=== PATIENT | female | born 1940 | race Caucasian/White ===

== ENCOUNTER 2019-10-31 02:44 | Outpatient (CLI) | payer MEDICARE | END 2019-10-31 02:45 | disposition critical access hospital (66) | LOC: EMS 02:44 | PROVIDERS: ATTEND Surgery | DX: M25.552 Pain in left hip (principal); W10.9XXA Fall (on) (from) unspecified stairs and steps, initial encounter; Y92.003 Bedroom of unspecified non-institutional (private) residence as the place of occurrence of the external cause ==

== ENCOUNTER 2019-10-31 02:53 | Inpatient (IN) | payer MEDICARE ==
--- NOTE | 2019-10-31 02:55 | ED Physician Documentation ---
PD HPI LOWER EXT INJURY - Stated complaint Stated Complaint: GLF, LEFT HIP PAIN - History obtained from History obtained from: Patient, Family - History of Present Illness PD HPI LOW EXT INJURY LOCATION: Left, Hip Type of injury: Fall Where injury occurred: A house / apartment (visiting [facility]) Timing - onset: How many hours ago (1) Timing - details: Abrupt onset Pain level max: 10 Pain level now: 6 Improved by: Rest Worsened by: Moving, Palpating Associated symptoms: No: Weakness, Numbness Contributing factors: No: Anticoagulated, Prior ortho surgery, Prosthetic joint Similar symptoms before: Has not had sx before Recently seen: Not recently seen - Additional information Additional information: visiting [facility] with family that recently bought a home in [place]; patient was thus unfamiliar with the house's layout. Patient was walking to bathroom at approximately 2 AM when she tripped on a step/stair, fell and has severe left hip pain. Given IM fentanyl by medics (prior to IV access) with modest improvement. Denies head injury, denies LOC, denies other injury or pain except left hip Review of Systems Constitutional: reports: Reviewed and negative Eyes: reports: Reviewed and negative Ears: reports: Reviewed and negative Nose: reports: Reviewed and negative Throat: reports: Reviewed and negative Cardiac: reports: Reviewed and negative Respiratory: reports: Reviewed and negative GI: reports: Reviewed and negative : denies: Incontinent Skin: reports: Reviewed and negative Musculoskeletal: reports: Joint pain, Pain with weight bearing (unable to attempt weight bearing due to severe pain with any movement of left hip). denies: Neck pain, Back pain Neurologic: denies: Generalized weakness, Focal weakness, Numbness, Syncope, Confused, Altered mental status, Head injury, LOC PD PAST MEDICAL HISTORY - Past Medical History Past Medical History: Yes Cardiovascular: Hypertension Endocrine/Autoimmune: HyPOthyroidism - Past Surgical History Past Surgical History: No - Present Medications Home Medications: Ambulatory Orders Medication Instructions Recorded Confirmed Levothyroxine [Synthroid] 50 mcg PO QDAC 10/31/19 10/31/19 Losartan [Cozaar] 10/31/19 - Allergies Allergies/Adverse Reactions: Allergies Allergy/AdvReac Type Severity Reaction Status Date / Time No Known Drug Allergies Allergy Verified 10/31/19 03:00 - Living Situation Living Arrangement: reports: At home PD ED PE NORMAL - Vitals Vital signs reviewed: Yes - General General: Alert and oriented X 3, Well developed/nourished, Other (obvious painful distress, mild/moderate at rest but severe with any movement involving LLE) - HEENT HEENT: Atraumatic, PERRL, EOMI - Neck Neck: Supple, no meningeal sign - Cardiac Cardiac: RRR, No murmur - Respiratory Respiratory: No respiratory distress, Clear bilaterally - Abdomen Abdomen: Soft, Non tender - Derm Derm: Normal color, Warm and dry - Neuro Neuro: Alert and oriented X 3, Normal speech Eye Opening: Spontaneous Motor: Obeys Commands Verbal: Oriented GCS Score: 15 PD ED PE EXPANDED - Extremities Extremities: Tenderness (left hip TTP ), Limited ROM (unable to ROM left hip due to severe pain with any attempts at movement) Results - Vitals Vitals: Vital Signs - 24 hr 10/31/19 02:56 Temperature 36.4 C L Heart Rate 64 Respiratory 18 Rate Blood Pressure 160/74 H O2 Saturation 97 - Labs Labs: Laboratory Tests 10/31/19 10/31/19 04:00 04:00 WBC 7.7 RBC 4.17 L Hgb 12.0 Hct 38.4 MCV 92.1 MCH 28.8 MCHC 31.3 L RDW 15.1 H Plt Count 191 MPV 11.0 H Neut # (Auto) 5.0 Lymph # (Auto) 2.1 [place] # (Auto) 0.5 Eos # (Auto) 0.1 Baso # (Auto) 0.0 Absolute Nucleated RBC 0.00 Nucleated RBC % 0.0 Sodium 139 Potassium 3.8 Chloride 103 Carbon Dioxide 29 Anion Gap 7.0 BUN 16 Creatinine 1.0 Estimated GFR (MDRD) 53 L Glucose 171 H Calcium 8.9 - Rads (name of study) left hip xrays Radiology: Prelim report reviewed, See rad report PD MEDICAL DECISION MAKING - ED course Complexity details: reviewed results, re-evaluated patient, considered differential, d/w patient, d/w family ED course: D/W Dr. Graf; recommends admit to [facility] hospitalist service Departure - Departure Disposition: [facility] DC/Xfer Clinical Impression: Comminuted fracture of left hip Condition: Stable Discharge Date/Time: 10/31/19 06:01
[2019-10-31] MEDS ORDERED: MORPHINE 10 MG/ML VIAL IVP STA (03:04)
[2019-10-31] MEDS ORDERED: SODIUM CHLORIDE 0.9% 1,000 ML IV STA (03:24)
[2019-10-31] MEDS ORDERED: MORPHINE 2 MG/ML CARPUJECT IVP STA ×2 (03:38→05:35)
--- NOTE | 2019-10-31 04:04 | XRAY Report ---
Reason: fall, left hip pain Procedure Date: 10/31/2019 Accession Number: [id number] / [id number] Procedure: XR - Hip w/Pelvis 2-3V LT CPT Code: Final Report FULL RESULT: EXAM: LEFT HIP RADIOGRAPHY EXAM DATE: 10/31/2019 03:48 AM. CLINICAL HISTORY: Fall, left hip pain. COMPARISON: None. TECHNIQUE: 2 views. FINDINGS: Bones: Comminuted left proximal femoral fracture with intertrochanteric component extending from greater trochanter and displaced/angulated fracture of proximal femoral diaphysis. No additional fractures or bone lesion. Joints: No hip dislocation or subluxation. No widening of pubic symphysis or sacroiliac joints. Mild degenerative changes of visualized lower lumbar spine and hips. Soft Tissues: Normal. No soft tissue swelling. IMPRESSION: Comminuted left proximal femoral fracture with intertrochanteric component and displaced/angulated fracture of proximal femoral diaphysis. RADIA
[2019-10-31 04:07] LABS: BASOPHILS % (AUTO) 0.4 %; EOSINOPHILS # (AUTO) 0.1 10^3/uL (0.0-0.7); LYMPHOCYTES # (AUTO) 2.1 10^3/uL (1.5-3.5); LYMPHOCYTES % (AUTO) 27.3 %; MEAN CORPUSCULAR HEMOGLOBIN 28.8 pg (27.0-31.0); MEAN CORPUSCULAR HGB CONC 31.3 g/dL (32.0-36.0); MEAN CORPUSCULAR VOLUME 92.1 fL (81.0-99.0); MONOCYTES # (AUTO) 0.5 10^3/uL (0.0-1.0); MONOCYTES % (AUTO) 6.5 %; NEUTROPHILS % (AUTO) 64.5 %; PLT - PLATELET COUNT 191 10^3/uL (130-450); RED BLOOD COUNT 4.17 10^6/uL (4.20-5.40); RED CELL DISTRIBUTION WIDTH 15.1 % (12.0-15.0); WHITE BLOOD COUNT 7.7 x10^3/uL (4.8-10.8)
[2019-10-31 04:16] LABS: CALCIUM 8.9 mg/dL (8.5-10.3)
[2019-10-31] MEDS ORDERED: ACETAMINOPHEN 325 MG TABLET PO PRN (04:42)
--- NOTE | 2019-10-31 04:49 | HISTORY & PHYSICAL EXAMINATION ---
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 She is visiting family who just moved to [facility]. She woke up to use the bathroom tonight and not being familiar with the lay out of the house, she missed a step and fell. Her daughter witnessed the fall. She did not hit her head or black out. Work up in the ED included an xray which showed a comminuted left proximal femoral fracture with an intertrochanteric component and a displaced/ angulated fracture of the femoral diaphesis. Orthopedic (Dr Graf) was contacted by the ED and is agreeable to see the patient. She require morphine and fentanyl for adequate pain control. At bedside she appears comfortable and denies any pain currently. She denies chest pain, abd pain, n/v/d, fever or chills. She is otherwise health with a medical history of hypothyroidism, hypertension and slight memory loss only. History - Past Medical History Cardiovascular: reports: Hypertension Endocrine/Autoimmune: reports: HyPOthyroidism - Past Surgical History HEENT: reports: Cataracts (left eye), Other (tooth implant) - Family & Social History Family History Comment/Other: mother: Dementia Living arrangement: At home Social History Notes: She does not smoke, use alcohol or illicit drugs - POLST Patient has POLST: No POLST Status: Full Code Meds/Allgy - Home Medications Home Medications: Ambulatory Orders Medication Instructions Recorded Confirmed Levothyroxine [Synthroid] 2 tab 10/31/19 - Allergies Allergies/Adverse Reactions: Allergies Allergy/AdvReac Type Severity Reaction Status Date / Time No Known Drug Allergies Allergy Verified 10/31/19 03:00 Review of Systems - Constitutional Constitutional: denies: Fatigue, Fever, Chills - Eyes Eyes: denies: Pain, Vision loss, Dipolpia - Ears, Nose & Throat Ears, Nose & Throat: denies: Vertigo, Sore throat - Cardiovascular Cariovascular: denies: Irregular heart rate, Chest pain, Edema, Lightheadedness, Syncope, Exertional dyspnea - Respiratory Respiratory: denies: Cough, Sputum production, Wheezing, Orthopnea, SOB at rest, SOB with exertion - Gastrointestinal Gastrointestinal: denies: Abdominal pain, Abdominal distention, Constipation, Diarrhea, Nausea, Vomiting, Reflux/heartburn - Genitourinary Genitourinary: denies: Dysuria, Frequency, Urgency, Hematuria - Musculoskeletal Musculoskeletal: reports: Joint pain (left hip). denies: Back pain - Integumentary Integumentary: denies: Rash, Pruritis, Lesions, Dryness - Neurological Neurological: denies: General weakness, Focal weakness, Headache, Dizziness - Psychiatric Psychiatric: denies: Depression, Anxiety - Endocrine Endocrine: denies: Polyuria, Polydypsia - Hematologic/Lymphatic Hematologic/Lymphatic: denies: Anemia, Bruising, Petechiae Prior Level of Functionality: She is independent of activities of daily living Exam - Vital Signs Vital Signs: Vital Signs x48h Temp Pulse Resp BP Pulse Ox 10/31/19 02:56 36.4 C L 64 18 160/74 H 97 - Physical Exam General Appearance: positive: Alert, Moderate distress Eyes Bilateral: positive: Normal inspection, PERRL, EOMI ENT: positive: ENT inspection nml Neck: positive: No JVD, Trachea midline Respiratory: positive: Chest non-tender, No respiratory distress, Breath sounds nml. negative: Wheezes, Rales, Rhonchi Cardiovascular: positive: Regular rate & rhythm, No murmur Abdomen: positive: Non-tender, No organomegaly, Nml bowel sounds, No distention. negative: Guarding, Rebound Back: positive: Nml inspection Skin: positive: Color nml, No rash, Warm, Dry Extremities: positive: Nml appearance, No pedal edema Neurologic/Psychiatric: positive: Oriented x3, Mood/affect nml Conclusion/Plan - Problem List (1) Femur fracture, left Conclusion/Plan: NPO. Pain management. IV hydration with normal saline Dr Graf (orthopedics) was consulted and will see the patient Qualifiers: Encounter type: initial encounter (2) Hypothyroidism Conclusion/Plan: Resume synthroid (3) Hypertension Conclusion/Plan: Will order hydralazine prn - Lab Results Fish Bones: 10/31/19 04:00 10/31/19 04:00 Core Measures - Anticipated LOS I expect patient to be DC'd or transferred within 96 hours.: Yes - DVT/VTE - Prophylaxis VTE/DVT Device ordered at admit?: Yes
[2019-10-31 05:26] LABS: BILIRUBIN,URINE NEGATIVE (NEGATIVE); GLUCOSE, URINE (UA) NEGATIVE (NEGATIVE); KETONES,URINE (UA) NEGATIVE (NEGATIVE); LEUKOCYTE ESTERASE, URINE NEGATIVE (NEGATIVE); NITRITE,URINE NEGATIVE (NEGATIVE); OCCULT BLOOD,URINE NEGATIVE (NEGATIVE); PH,URINE 5.5 PH (5.0-7.5); PROTEIN,URINE NEGATIVE (NEGATIVE); UROBILINOGEN,URINE 0.2 (NORMAL) E.U./dL (NORMAL)
[2019-10-31] MEDS ORDERED: hydrALAZINE INJ 20 MG/ML VIAL IVP PRN (05:26)
[2019-10-31 05:27] LABS: CLARITY,URINE CLEAR (CLEAR)
[2019-10-31] MEDS: SODIUM CHLORIDE 0.9% 1,000 ML IV SCH ×3 (06:41→18:48)
[2019-10-31] MEDS: SODIUM CHLORIDE FLUSH 0.9% 10 ML SYRINGE IVP SCH ×2 (09:54→17:27)
[2019-10-31] MEDS: LEVOTHYROXINE 25 MCG TABLET PO SCH (09:54)
[2019-10-31] MEDS: HYDROmorphone 0.5 MG/0.5 ML SYRINGE IVP PRN (10:44)
[2019-10-31] MEDS: SODIUM CHLORIDE FLUSH 0.9% 10 ML SYRINGE IVP PRN (10:44)
--- NOTE | 2019-10-31 11:26 | ANESTHESIA ---
Pre-Anesthesia VS, & Labs - Diagnosis left hip fx - Procedure left hip fx repair Vital Signs: Temp Pulse Resp BP Pulse Ox 36.2 C L 71 15 136/55 H 98 10/31/19 07:28 10/31/19 07:28 10/31/19 07:28 10/31/19 07:28 10/31/19 07:28 Height 5 ft 5 in Weight (kg) 107 kg Body Mass Index 39.2 - Is Patient ?: No - Lab Results Current Lab Results: Laboratory Tests 10/31/19 04:00: Sodium 139, Potassium 3.8, Chloride 103, Carbon Dioxide 29, A nion Gap 7.0, BUN 16, Creatinine 1.0, Estimated GFR (MDRD) 53 L, Glucose 171 H, Calcium 8.9 10/31/19 04:00: WBC 7.7, RBC 4.17 L, Hgb 12.0, Hct 38.4, MCV 92.1, MCH 28.8, MCHC 31.3 L, RDW 15.1 H, Plt Count 191, MPV 11.0 H, Neut # (Auto) 5.0, Lymph # (Auto) 2.1, [place] # (Auto) 0.5, Eos # (Auto) 0.1, Baso # (Auto) 0.0, Absolute Nucleated RBC 0.00, Nucleated RBC % 0.0 Fish Bones: 10/31/19 04:00 10/31/19 04:00 Home Medications and Allergies Home Medications: Ambulatory Orders Levothyroxine [Synthroid] 50 mcg PO QDAC 10/31/19 Losartan [Cozaar] 10/31/19 Active Medications Acetaminophen (Tylenol) 650 mg PO Q6HR PRN PRN Reason: Pain 1 to 4 Hydralazine HCl (Apresoline Inj) 10 mg IVP Q4H PRN PRN Reason: PER PHYSICIAN ORDER Hydromorphone HCl (Dilaudid Inj Syringe) 0.5 mg IVP Q2H PRN PRN Reason: Pain 8 to 10 Last Admin: 10/31/19 10:44 Dose: 0.5 mg Sodium Chloride (Normal Saline 0.9%) 1,000 mls @ 100 mls/hr IV .Q10H MYRA Last Admin: 10/31/19 10:54 Dose: 100 mls/hr Levothyroxine Sodium (Synthroid) 25 mcg PO QDAC [facility] Last Admin: 10/31/19 09:54 Dose: Not Given Oxycodone HCl (Roxicodone) 5 mg PO Q4HR PRN PRN Reason: Pain 5 to 7 Sodium Chloride (Normal Saline Flush 0.9%) 10 ml IVP PRN PRN PRN Reason: NEEDED PER PROVIDER ORDERS Last Admin: 10/31/19 10:44 Dose: 10 ml Sodium Chloride (Normal Saline Flush 0.9%) 10 ml IVP 0100,0900,1700 [facility] Last Admin: 10/31/19 09:54 Dose: Not Given Levothyroxine [Synthroid] 50 mcg PO QDAC 10/31/19 Losartan [Cozaar] 10/31/19 Allergies/Adverse Reactions: Allergies Allergy/AdvReac Type Severity Reaction Status Date / Time No Known Drug Allergies Allergy Verified 10/31/19 03:00 Anes History & Medical History - Anesthetic History Anesthesia Complications: reports: No previous complications Family history of Anesthesia Complications: Denies Family history of Malignant Hyperthermia: Denies - Medical History Cardiovascular: reports: Hypertension Pulmonary: reports: None Gastrointestinal: reports: None Urinary: reports: Incontinence, Frequency Neuro: reports: Other (daughter reports "some memory loss") Musculoskeletal: reports: None Endocrine/Autoimmune: reports: HyPOthyroidism Blood Disorders: reports: None Skin: reports: None Smoking Status: Never smoker Psychosocial: reports: No issues indicated Other Past Medical History: memory loss, - Surgical History Eyes Ears Nose Throat (EENT): Cataracts (left eye), Other (tooth implant) Results - EKG Results EKG Comparison: Normal EKG Exam General: Alert, Oriented x3, Cooperative, No acute distress, Other ("some memory loss") Dental: WNL Mouth Openin Fingerbreadth Neck Mobility: Normal Mallampati classification: II Respiratory: Lungs clear, Normal breath sounds, No respiratory distress, No accessory muscle use, Decreased breath sounds Cardiovascular: Regular rate, Normal S1, Normal S2, No murmurs Abdomen: Normal bowel sounds, Soft, No tenderness, No hepatospenomegaly, No masses Extremities: No clubbing, No cyanosis, No edema, Normal pulses, No tenderness/swelling Neurological: Normal gait, Normal speech, Strength at 5/5 X4 ext, Normal tone, Sensation intact, Cranial nerves 3-12 NL, Reflexes 2+ Mental/Cognitive Status: Alert/Oriented X3, Normal for patient Cognitive Status: Within normal limits Plan Anesthesia Type: General Regional Block: Per Surgeon's request for Post Op pain control Consent for Procedure(s) Verified and Reviewed: Yes Code Status: Attempt Resuscitation ASA classification: 2-Mild systemic disease Is this case an emergency?: No
--- NOTE | 2019-10-31 12:53 | CONSULTATION NOTE ---
Referring Provider Name of Referring Provider:: Kin Aguero MD Consult Date: 10/31/19 Chief Complaint - Chief Complaint Chief Complaint: Asked to evaluate for left intertrochanteric/subtrochanteric femur fracture History of Present Illness - History Obtained From History obtained from: Kin Aguero MD, patient, daughter Michelle POA Exam Limitations: Possible patient dementia, "memory loss" per daughter - History of Present Illness HPI Comment/Other: This is an 79-year-old female who is generally active who lives alone but in a snf community. She reportedly sustained a mechanical fall on stairs in the early a.m. hours 10/31/2019. She was brought to the emergency room found to have a complex femur fracture and admitted for planned surgical intervention. Patient is seen and examined with the daughter Michelle who is the POA at the bedside. Patient denies other significant trauma just has hip and thigh pain on the left side. She says she normally ambulates with no assistive device as a baseline and takes care of herself though she does have 3 meals a day prepared by the [employer]. There are some stairs involved in her daily activities. The patient's daughter says that patient is active with shopping and activities around the house and has not been otherwise physically limited in the past. By report the patient's daughter notes that the patient has some "memory loss". History - Past Medical History Cardiovascular: reports: Hypertension Respiratory: reports: None Neuro: reports: Dementia, Other (daughter reports "some memory loss") Endocrine/Autoimmune: reports: HyPOthyroidism GI: reports: None : reports: Incontinence, Frequency Psych: reports: None Musculoskeletal: reports: None Derm: reports: None Other Past Medical History: memory loss, - Past Surgical History HEENT: reports: Cataracts (left eye), Other (tooth implant) - Family & Social History Family History Comment/Other: mother: Dementia Living arrangement: At home Social History Notes: She does not smoke, use alcohol or illicit drugs - POLST Patient has POLST: No POLST Status: Full Code Meds/Allgy - Home Medications Home Medications: Ambulatory Orders Medication Instructions Recorded Confirmed Levothyroxine [Synthroid] 50 mcg PO QDAC 10/31/19 10/31/19 Losartan [Cozaar] 10/31/19 - Allergies Allergies/Adverse Reactions: Allergies Allergy/AdvReac Type Severity Reaction Status Date / Time No Known Drug Allergies Allergy Verified 10/31/19 03:00 Exam - Vital Signs Vital Signs: Vital Signs x48h Temp Pulse Resp BP Pulse Ox 10/31/19 11:50 35.6 C L 76 15 135/57 H 96 10/31/19 07:28 36.2 C L 71 15 136/55 H 98 10/31/19 06:00 36.3 C L 65 18 130/50 L 93 - Physical Exam Comments/Other: Silvia is a well-developed obese 79-year-old female in mild distress. She is cooperative with the exam. Patient's left lower extremity is in a shortened externally rotated position. She has palpable dorsalis pedis. She is able to flex extend toes and ankle without discomfort. She reports hip and thigh pain with attempts at knee extension flexion. She has no focal tenderness about the knee leg foot or ankle. She has tenderness about the hip girdle though the skin overlying the hip girdle and thigh left side appears intact. Thigh and calf soft otherwise. Conclusion/Plan - Diagnosis Diagnosis: Left intertrochanteric/subtrochanteric comminuted displaced femur fr acture - Plan Plan: Silvia is a 79-year-old female with a left comminuted displaced intertrochanteric/subtrochanteric femur fracture with displacement. Discussed the injury with the patient and the patient's daughter Michelle. I eligio a diagram on the white board and discussed the injury as well as treatment options. We talked about the potential risks of this type of injury as well as with proposed surgery. We talked about potential surgical risks including but not limited to infection wound problems nerve or blood vessel injury bleeding blood clot blood clot embolus positioning complications anesthetic complications including but not limited to major cardiovascular neurovascular complications even . We talked about the fact that she has a complex fracture in that it would be unlikely to get the fracture fragments "perfect". We talked about the fact that there will likely continue to be some displacement to some degree. Implications of this reviewed. Potential need for additional procedures is considered. Patient and the patient's daughter had questions as were answered they verbalized understanding the above the patient's verbalized her wish to proceed with proposed procedure noted below as did the patient's daughter Michelle. We talked briefly about perioperative considerations and immediate postoperative expected plans. We will plan for surgery as no additional optimization recommended from an anesthesia or medical standpoint. Rationale for above approach and treatment recommendations reviewed. Patient will have perioperative antibiotics. Proposed procedure is left femur open reduction internal fixation, cephalo-medu llary nail placement, possible cerclage wiring. - Lab Results Fish Bones: 10/31/19 04:00 10/31/19 04:00 - Diagnostic Imaging Results Diagnostic Imaging Results Comments: Left intertrochanteric/subtrochanteric comminuted displaced femur fracture. Incomplete femur films. Further imaging planned via fluoroscopy in OR.
--- NOTE | 2019-10-31 13:22 | PHARMACY PROGRESS NOTE ---
- Best Possible Medication History Admit Date and Time: 10/31/19 0442 Medication History completed: Yes Patient Interview: Pt unable to participate Secondary Source(s): Prescription bottles, Other family member As the person ultimately responsible for medication therapy, providers are able to order a medication from an existing home medication list in [employer] via the "Reconcile Routine" prior to Confirmation of that medication by software support engineer. Such practice is discouraged except when the physician, in their clinical judgment, deems that a medical need exists for a medication without regard to previous use.
[2019-10-31] MEDS ORDERED: ROPIVACAINE 0.5% PF 20 ML AMPULE ONE (13:37)
[2019-10-31] MEDS ORDERED: LACTATED RINGERS 1,000 ML IV ONE ×3 (15:04→16:27)
--- NOTE | 2019-10-31 15:56 | PROVIDER PROGRESS NOTE ---
Assessment/Plan - Problem List (1) Comminuted fracture of left hip Assessment/Plan: She underwent left hip pinning by Dr. Glenn Lomas this afternoon. Today is POD #0. Pain meds planned as needed. Advance diet when tolerated. Start PT when possible. (2) Hypothyroidism Assessment/Plan: Continue with her p.o. thyroid replacement (3) Hypertension Assessment/Plan: Resume meds when possible. - Current Meds Current Meds: Current Medications Generic Name Dose Route Start Last Admin Trade Name Freq PRN Reason Stop Dose Admin Hydromorphone HCl 0.5 mg 10/31/19 04:42 10/31/19 10:44 Dilaudid Inj Syringe IVP 0.5 mg Q2H PRN Administration Pain 8 to 10 Sodium Chloride 1,000 mls @ 100 mls/hr 10/31/19 05:00 10/31/19 10:54 Normal Saline 0.9% IV 100 mls/hr .Q10H MYRA Administration Levothyroxine Sodium 25 mcg 10/31/19 08:00 10/31/19 09:54 Synthroid PO Not Given QDAC MYRA Sodium Chloride 10 ml 10/31/19 04:42 10/31/19 10:44 Normal Saline Flush 0.9% IVP 10 ml PRN PRN Administration NEEDED PER PROVIDER ORDERS Sodium Chloride 10 ml 10/31/19 09:00 10/31/19 09:54 Normal Saline Flush 0.9% IVP Not Given 0100,0900,1700 MYRA - Lab Result Fish Bone Diagrams: 10/31/19 04:00 10/31/19 04:00 Objective Vital Signs: Vital Signs - 24 hr 10/31/19 10/31/19 10/31/19 02:56 06:00 07:28 Temperature 36.4 C L 36.3 C L 36.2 C L Heart Rate 64 Heart Rate [ 65 71 Brachial] Respiratory 18 18 15 Rate Blood Pressure 160/74 H Blood Pressure 130/50 L 136/55 H [Right Brachial artery] O2 Saturation 97 93 98 10/31/19 11:50 Temperature 35.6 C L Heart Rate Heart Rate [ 76 Brachial] Respiratory 15 Rate Blood Pressure Blood Pressure 135/57 H [Right Brachial artery] O2 Saturation 96 Oxygen O2 Source Room air I&O (Last 24 Hrs): Intake and Output Totals x24h 10/29/19 10/30/19 10/31/19 23:59 23:59 23:59 Intake Total 1000 Output Total 125 Balance 875 - Results Results: Laboratory Results WBC 7.7 x10^3/uL (4.8-10.8) 10/31/19 04:00 RBC 4.17 10^6/uL (4.20-5.40) L 10/31/19 04:00 Hgb 12.0 g/dL (12.0-16.0) 10/31/19 04:00 Hct 38.4 % (37.0-47.0) 10/31/19 04:00 MCV 92.1 fL (81.0-99.0) 10/31/19 04:00 MCH 28.8 pg (27.0-31.0) 10/31/19 04:00 MCHC 31.3 g/dL (32.0-36.0) L 10/31/19 04:00 RDW 15.1 % (12.0-15.0) H 10/31/19 04:00 Plt Count 191 10^3/uL (130-450) 10/31/19 04:00 MPV 11.0 fL (7.9-10.8) H 10/31/19 04:00 Neut # (Auto) 5.0 10^3/uL (1.5-6.6) 10/31/19 04:00 Lymph # (Auto) 2.1 10^3/uL (1.5-3.5) 10/31/19 04:00 [place] # (Auto) 0.5 10^3/uL (0.0-1.0) 10/31/19 04:00 Eos # (Auto) 0.1 10^3/uL (0.0-0.7) 10/31/19 04:00 Baso # (Auto) 0.0 10^3/uL (0.0-0.1) 10/31/19 04:00 Absolute Nucleated RBC 0.00 x10^3/uL 10/31/19 04:00 Nucleated RBC % 0.0 /100WBC 10/31/19 04:00 Sodium 139 mmol/L (135-145) 10/31/19 04:00 Potassium 3.8 mmol/L (3.5-5.0) 10/31/19 04:00 Chloride 103 mmol/L (101-111) 10/31/19 04:00 Carbon Dioxide 29 mmol/L (21-32) 10/31/19 04:00 Anion Gap 7.0 (6-13) 10/31/19 04:00 BUN 16 mg/dL (6-20) 10/31/19 04:00 Creatinine 1.0 mg/dL (0.4-1.0) 10/31/19 04:00 Estimated GFR (MDRD) 53 (>89) L 10/31/19 04:00 Glucose 171 mg/dL (70-100) H 10/31/19 04:00 Calcium 8.9 mg/dL (8.5-10.3) 10/31/19 04:00 Urine Color YELLOW 10/31/19 05:18 Urine Clarity CLEAR (CLEAR) 10/31/19 05:18 Urine pH 5.5 PH (5.0-7.5) 10/31/19 05:18 Ur Specific [place] 1.010 (1.002-1.030) 10/31/19 05:18 Urine Protein NEGATIVE mg/dL (NEGATIVE) 10/31/19 05:18 Urine Glucose (UA) NEGATIVE mg/dL (NEGATIVE) 10/31/19 05:18 Urine Ketones NEGATIVE mg/dL (NEGATIVE) 10/31/19 05:18 Urine Occult Blood NEGATIVE (NEGATIVE) 10/31/19 05:18 Urine Nitrite NEGATIVE (NEGATIVE) 10/31/19 05:18 Urine Bilirubin NEGATIVE (NEGATIVE) 10/31/19 05:18 Urine Urobilinogen 0.2 (NORMAL) E.U./dL (NORMAL) 10/31/19 05:18 Ur Leukocyte Esterase NEGATIVE (NEGATIVE) 10/31/19 05:18 Ur Microscopic Review NOT INDICATED 10/31/19 05:18 Urine Culture Comments NOT INDICATED 10/31/19 05:18
[2019-10-31] MEDS ORDERED: PROCHLORPERAZINE 10 MG/2 ML VIAL IVP PRN (17:35)
--- NOTE | 2019-10-31 17:41 | IMMEDIATE POSTOPERATIVE NOTE ---
Immediate Postoperative Note - Procedure Note Procedure Date: 10/31/19 Pre-Op Diagnosis: Left intertrochanteric/subtrochanteric femur fracture Procedure: Left femur open reduction internal fixation cephalo-medullary nail placement with cerclage wire Post-Op Diagnosis: Same Primary Surgeon: Eric Graf MD Dietary Aide Cook: None Anesthesia Type: General ET tube, Regional block Findings: As above Complications: No complications Estimated Blood Loss (in cc): 150 Drains, Catheters, Devices: Posey catheter remains in place Specimens and Cultures: None Plan of Care: Perioperative antibiotics, perioperative DVT prophylaxis mechanical and chemical, analgesics as necessary, out of bed with physical therapy, incentive spirometer every hour when awake, partial weightbearing with foot flat weightbearing left lower extremity with assistance and assist device as necessary for transfers and ambulation. Return to medical service with close orthopedic management and [facility] when medically clear
[2019-10-31] MEDS ORDERED: ceFAZolin 2 GM in SODIUM CHLORIDE 0.9% 100ML 100 ML IV SCH (18:00)
[2019-10-31] MEDS: ceFAZolin 2 GM in SODIUM CHLORIDE 0.9% 100ML 100 ML IV SCH (22:14)
[2019-11-01] MEDS ORDERED: WATER FOR INJECTION,STERILE 10 ML ONE (02:41)
[2019-11-01 04:57] LABS: BASOPHILS % (AUTO) 0.1 %; HGB - HEMOGLOBIN 8.8 g/dL (12.0-16.0); LYMPHOCYTES # (AUTO) 1.3 10^3/uL (1.5-3.5); LYMPHOCYTES % (AUTO) 12.7 %; MEAN CORPUSCULAR HEMOGLOBIN 28.9 pg (27.0-31.0); MEAN CORPUSCULAR HGB CONC 30.3 g/dL (32.0-36.0); MEAN CORPUSCULAR VOLUME 95.1 fL (81.0-99.0); MEAN PLATELET VOLUME 11.5 fL (7.9-10.8); MONOCYTES # (AUTO) 0.6 10^3/uL (0.0-1.0); MONOCYTES % (AUTO) 6.3 %; NEUTROPHILS # (AUTO) 8.2 10^3/uL (1.5-6.6); NEUTROPHILS % (AUTO) 80.6 %; PLT - PLATELET COUNT 164 10^3/uL (130-450); RED BLOOD COUNT 3.05 10^6/uL (4.20-5.40); RED CELL DISTRIBUTION WIDTH 15.4 % (12.0-15.0); WHITE BLOOD COUNT 10.1 x10^3/uL (4.8-10.8)
[2019-11-01] MEDS: SODIUM CHLORIDE 0.9% 1,000 ML IV SCH ×3 (04:57→23:39)
[2019-11-01 05:06] LABS: CALCIUM 7.9 mg/dL (8.5-10.3); CREATININE 0.9 mg/dL (0.4-1.0)
--- NOTE | 2019-11-01 06:16 | XRAY Report ---
Reason: LEFT HIP NAILING Procedure Date: 10/31/2019 Accession Number: [id number] / [id number] Procedure: [place] - OR C-Arm Procedure CPT Code: Final Report FULL RESULT: EXAM: FLUOROSCOPIC GUIDANCE EXAM DATE: 10/31/2019 05:34 PM. CLINICAL HISTORY: LEFT HIP NAILING. COMPARISON: HIP W/PELVIS 2-3V LT 10/31/2019 3:03 AM. FINDINGS IMPRESSION: Fluoroscopic guidance provided for gamma nail placement. Total fluoroscopy time: 2 minutes 51 seconds. Number of images: 7. RADIA
[2019-11-01] MEDS: oxyCODONE 5 MG TABLET PO PRN ×3 (06:32→20:50)
[2019-11-01] MEDS: ceFAZolin 2 GM in SODIUM CHLORIDE 0.9% 100ML 100 ML IV SCH (06:35)
[2019-11-01] MEDS: LEVOTHYROXINE 25 MCG TABLET PO SCH (06:42)
--- NOTE | 2019-11-01 07:04 | PROVIDER PROGRESS NOTE ---
Subjective - Prog Note Date Prog Note Date: 11/01/19 Prog Note Time: 06:45 - Subjective Pt reports feeling: Improved (Patient says she feels "good". She says she has no pain and that she slept relatively well.) Objective - Vital Signs/Intake & Output Vital Signs: Vital Signs x48h Temp Pulse Resp BP Pulse Ox 11/01/19 04:00 36.6 C 92 18 133/45 H 94 10/31/19 23:25 36.8 C 65 18 142/52 H 96 Intake & Output: Intake & Output 10/29/19 10/30/19 10/31/19 11/01/19 23:59 23:59 23:59 23:59 Intake Total 1890 1000 Output Total 275 250 Balance 1615 750 - Lab Results Fish Bones: 11/01/19 04:45 11/01/19 04:45 Other Labs: Lab Results x24hrs 11/01/19 11/01/19 Range/Units 04:45 04:45 WBC 10.1 (4.8-10.8) x10^3/uL RBC 3.05 L (4.20-5.40) 10^6/uL Hgb 8.8 L (12.0-16.0) g/dL Hct 29.0 L (37.0-47.0) % MCV 95.1 (81.0-99.0) fL MCH 28.9 (27.0-31.0) pg MCHC 30.3 L (32.0-36.0) g/dL RDW 15.4 H (12.0-15.0) % Plt Count 164 (130-450) 10^3/uL MPV 11.5 H (7.9-10.8) fL Neut # (Auto) 8.2 H (1.5-6.6) 10^3/uL Lymph # (Auto) 1.3 L (1.5-3.5) 10^3/uL [place] # (Auto) 0.6 (0.0-1.0) 10^3/uL Eos # (Auto) 0.0 (0.0-0.7) 10^3/uL Baso # (Auto) 0.0 (0.0-0.1) 10^3/uL Absolute Nucleated RBC 0.00 x10^3/uL Nucleated RBC % 0.0 /100WBC Sodium 138 (135-145) mmol/L Potassium 4.3 (3.5-5.0) mmol/L Chloride 108 (101-111) mmol/L Carbon Dioxide 25 (21-32) mmol/L Anion Gap 5.0 L (6-13) BUN 18 (6-20) mg/dL Creatinine 0.9 (0.4-1.0) mg/dL Estimated GFR (MDRD) 60 L (>89) Glucose 164 H (70-100) mg/dL Calcium 7.9 L (8.5-10.3) mg/dL - Other Results/Comments Other Results/Comments: Patient's left lower extremity remains neurovascular unchanged distally. She is easily able to flex and extend toes ankle and initiate flexion extension knee thigh calf soft. No calf tenderness noted. Patient's left hip and thigh dressings clean dry and intact trace ecchymosis around central incision no erythema or warmth soft tissues remain soft. Assessment/Plan - Problem List (1) Comminuted fracture of left hip Impression: Silvia is an 79-year-old female postoperative day #1 status post left hip and femur open reduction internal fixation with cephalo-medullary nail placement and cerclage wire placement. She says she is comfortable and much better than she was presurgery and slept well. I recommend continued DVT prophylaxis mechanical and chemical. Foot pumps to be in place At all times while in bed. Patient to be out of bed with physical therapy and work with physical therapy occupational therapy and social work today. Patient is to be foot flat weightbearing left lower extremity with walker or oth er assistive device and assistance as necessary for transfers and ambulation. Orthopedically stable. May ultimately discharge to senior living facility when cleared physical therapy for that environment and when okay from hospitalist perspective, likely tomorrow or day after. Ultimately when discharge patient to follow-up in orthopedic clinic 10 to 14 days postop or sooner as needed. Patient and patient's daughter's questions were answered they verbalized agreement and satisfaction with above plan Qualifiers: Encounter type: subsequent encounter
[2019-11-01 08:02] LABS: ABSOLUTE RETICS # AUTO 0.048 10^6/uL (0.020-0.110); RED BLOOD COUNT 3.04 10^6/uL (4.20-5.40)
[2019-11-01 08:33] LABS: FERRITIN 119.6 ng/mL (11.0-306.8)
[2019-11-01 08:37] LABS: % IRON SATURATION 10 % (20-50); IRON 24 ug/dL (28-170); TOTAL IRON BINDING CAPACITY 239 ug/dL (250-450); TRANSFERRIN 171 mg/dL (192-382)
--- NOTE | 2019-11-01 09:13 | OPERATIVE REPORT ---
DATE OF SERVICE: 10/31/2019 Physician: Juan Graf MD SURGEON: Juan Graf MD BROADCAST CHIEF ENGINEER: None. ANESTHESIOLOGIST: Carter Jackman CRNA ANESTHESIA TYPE: Left side regional block under ultrasound guidance of the fascial iliac region of t he hip and thigh, as well as general anesthesia. FLUIDS: 1400 mL lactated Ringer's. ESTIMATED BLOOD LOSS: 150 mL URINE OUT: 200 mL COMPRESSION DEVICE: Contralateral right calf SCD. PREOPERATIVE ANTIBIOTICS: Weight-based IV Ancef. ORTHOPEDIC IMPLANTS 1. Tariq and Nephew 11.5 mm x 38 cm, 125 degree left TRIGEN Intertan nail. 2. A 2 mm cable with clamp. 3. TRIGEN Intertan subtrochanteric lag screw, 11 x 110 mm. 4. TRIGEN LP screw, 5 mm x 42.5. 5. TRIGEN LP screw, 5 x 50 mm. INTRAOPERATIVE COMPLICATIONS: None noted. PREOPERATIVE DIAGNOSIS: Left intertrochanteric/subtrochanteric displaced comminuted femur fracture. POSTOPERATIVE DIAGNOSIS: Left intertrochanteric/subtrochanteric displaced comminuted femur fracture. PROCEDURE PERFORMED: Left femur open reduction internal fixation and a cephalomedullary nail placeme nt with cerclage wire. HISTORY OF PRESENT ILLNESS AND INDICATIONS: Patient is an 79-year-old female who sustained a fall ea rly on 10/31/2019. She is brought to the emergency room and found to have a significantly displaced proximal femur fracture, is indicated for operative treatment. Discussed with the patient and patien nely's daughter, Michelle/LARISSA risks, benefits, and alternatives of operative and nonoperative treatment. We talked about potential operative risks including but not limited to infection, wound problems, ner ve or blood vessel injury, numbness, weakness, pain, stiffness, decreased range of motion, decreased function, worsening of her condition, failure to "cure" patient's problem, iatrogenic injury, bleedin g, blood loss, blood clot, blood clot embolus, positioning complications, anesthetic complications in cluding but not limited to major cardiovascular and neurovascular complications and even . We t alked about the potential for malunion and the implications of that, potential need for additional pr ocedures in the future. We also talked about related issues with sedentary behavior with hip fractur es including but not limited to pneumonia, bedsores and blood clots. They verbalized understanding o f the above and verbalized their wish to proceed with operative treatment. Informed consent is given . DESCRIPTION OF PROCEDURE: On 10/31/2019, patient is identified in her hospital room. She identified the left hip and thigh as the operative site. This is signed, as did the patient's daughter identif y the left side hip as the operative site. Patient received weight-based IV antibiotics. She is brought to the operating room. She has regiona l block under ultrasound guidance administered by anesthesia team, then general anesthesia is adminis tered. She is placed gently on a fracture table with head, neck and extremities placed in anatomical ly comfortable and safe positions to avoid peripheral nerve stretch and compression. Patient's contr alateral right lower extremity is placed in a maximal safe zone of hip flexion, internal rotation, an d abduction, in a gel-padded leg rest with an SCD boot in place. Patient's left lower extremity has a well-padded foot cunningham and is fixed to this as a reduction maneuver is performed with traction and some internal rotation. Fluoroscopic image confirms improved position of the proximal femur fractur e on the left side. At this point, patient's left thigh and left hip region are pre-scrubbed with Hi biclens solution, followed by alcohol, followed by ChloraPrep and draped under sterile conditions. At this time, surgical pause identifies the left hip and thigh as the operative site. At this point, a guide pin is used for identifying the site of the significantly displaced fracture fragment, parti cularly that of a flexed, more proximal section, at which point an incision is made through skin all the way down to IT band to the femur and a combination of [place], as well as Verbrugge type clamps are used to help reduce this fracture. The fracture position is improved and held in place with a clamp, as a more proximal incision is made such that the guide pin could be brought to the tip of the great er trochanter, approximately between the anterior and middle thirds. This is brought into the femur and then a canal entering reamer is used, followed by placement of a ball-tip guidewire, though with multiple attempts it is not possible to pass the guidewire past the fracture site. As such, the Verb rugge retractor is removed and a right angle clamp is used to place through this lateral incision to help guide the guidewire down past the fracture site all the way to the knee, is confirmed to be intr aosseous. At this point, then the reduction again is maintained with clamps. At this point, with so ft tissue protection proximally, sequential reaming up to 13 is performed and reaming across the frac ture site is held until the final reamers to avoid eccentric reaming. At this point, the appropriate length nail is selected and seated into place past the fracture site and then, prior to impacting th is, it was felt that it would be beneficial to place a cerclage wire to maintain the good reduction p rior to further impaction of the nail to avoid any displacement. As such, a wire passer for the cerc meri wire is placed directly on the femur, and a braided steel cerclage wire is placed around the bon e and then tensioned into place, which maximizes reduction. This is provisionally fixed and then con firmed on multiple images to demonstrate good reduction of the multiple fracture fragments of the fem ur, at which point this is tightened to appropriate tension and then the screw on the clamp is tighte andrez appropriately. It is not yet cut and the tentative clamps are removed, and then attention is dir ected towards proceeding the nail to the appropriate depth, followed by placement of a guide and head pin to determine trajectory of the head screw. This is followed by appropriate reaming and then wilbert cement of a femoral head screw, purposely leaving a slight bit of screw outside of the cortex to main tain fixation on the lateral cortex. At this point, the locking nut is locked and then loosened 1/8 turn and, after determination of appropriate reduction and hardware placement proximally, the cerclag e wire tagged and is cut flush. At this point, attention is directed distally to 2 locking screws, o ne in the dynamic and one in the static hole through the perfect habematolel technique through small stab incisions. Once these are seated, final images are taken. It should be noted that the more proximal of the 2 screws is tightened slightly more after the final images are taken, as is noted to be sligh tly off the cortex. At this point, wounds are copiously irrigated. Hemostasis is achieved. Final f luoroscopic images are taken as above. Deep layers are closed using 0 Vicryl suture and then 2-0 Jermaine ryl suture, followed by skin thais on all of the wounds. Skin is washed and dried. Xeroform dress ing is applied distally with 4 x 4 and Winston wrap and the proximal two incisions have silver dressings placed. Patient tolerated the procedure well. Instrument and sponge counts are correct. Patient is ultimate ly carefully transferred to her hospital bed, leg length within 5 mm, rotation within 5 degrees. Patient is transferred to the recovery room in stable condition. Patient will follow the following protocol: She will be foot-flat weightbearing, left lower extremit y, with assistance and assistive device at all times for transfers and ambulation. She will keep lui ssings in place, changed by surgeon. She will be on perioperative antibiotics and perioperative DVT prophylaxis, mechanical and chemical. She will be returned to the hospitalist service with close ort hopedic management. Patient's daughter, Michelle, contacted in patient's hospital room. The case is discussed. Questions answered. She verbalized understanding, agreement and satisfaction with the plan as outlined. TD: 11/01/2019 08:01
[2019-11-01] MEDS: SODIUM CHLORIDE FLUSH 0.9% 10 ML SYRINGE IVP SCH ×4 (10:08→23:40)
--- NOTE | 2019-11-01 10:17 | PROVIDER PROGRESS NOTE ---
Assessment/Plan - Problem List (1) Comminuted fracture of left hip Qualifiers: Encounter type: subsequent encounter Assessment/Plan: 11/01 day one from s/p left hip fracture repair continue DVT prophylaxis per surgeon order incentive spirometer PT/OT evaluation and treatment continue Pain control consulted with SW for d/c planing (2) Hypothyroidism Assessment/Plan: check TSH, and Continue with her p.o. thyroid replacement (3) Hypertension Assessment/Plan: stable, Resume Cozzar, home meds (4) anemia pt's HGB is 8.8, significantly drip from 12 at the admission, it is likely from acute blood loss from surgery. clinically pt is hemodynamic stable. anemia study reveals slight iron deficiency, replacement of iron H&H to monitor - Current Meds Current Meds: Current Medications Generic Name Dose Route Start Last Admin Trade Name Freq PRN Reason Stop Dose Admin Acetaminophen 650 mg 10/31/19 04:42 11/01/19 06:33 Tylenol PO 650 mg Q6HR PRN Administration Pain 1 to 4 Hydromorphone HCl 0.5 mg 10/31/19 04:42 10/31/19 10:44 Dilaudid Inj Syringe IVP 0.5 mg Q2H PRN Administration Pain 8 to 10 Sodium Chloride 1,000 mls @ 100 mls/hr 10/31/19 05:00 11/01/19 07:05 Normal Saline 0.9% IV 100 mls/hr .Q10H MYRA Infusion Oxycodone HCl 5 mg 10/31/19 04:42 11/01/19 06:32 Roxicodone PO 5 mg Q4HR PRN Administration Pain 5 to 7 Sodium Chloride 10 ml 10/31/19 04:42 10/31/19 10:44 Normal Saline Flush 0.9% IVP 10 ml PRN PRN Administration NEEDED PER PROVIDER ORDERS Sodium Chloride 10 ml 10/31/19 09:00 11/01/19 10:08 Normal Saline Flush 0.9% IVP Not Given 0100,0900,1700 MYRA - Lab Result Fish Bone Diagrams: 11/01/19 04:45 11/01/19 04:45 - Additional Planning My Orders: My Active Orders 11/01/19 07:49 Incentive Spirometry - RT [RC] .TID 11/01/19 09:00 Losartan [Cozaar] 50 mg PO DAILY 11/01/19 10:00 Ferrous Sulfate [Feosol] 325 mg PO DAILYWM 11/01/19 12:00 Cyanocobalamin [Vitamin B-12] 1,000 mcg IM ONCE ONE 11/01/19 14:00 H&H [HEMOGLOBIN AND HEMATOCRIT] [HEME] Timed 11/02/19 05:00 CMP [COMPREHENSIVE METABOLIC PANEL] [CHEM] DAILYLAB MAGNESIUM [CHEM] DAILYLAB TSH [THYROID STIMULATING HORMONE] [IAI] DAILYLAB 11/02/19 07:00 Levothyroxine [Synthroid] 50 mcg PO QDAC Subjective - Subjective Patient Reports: No Complaints, Other (pt denies fever, chill, chest pain or shortness of breath) Objective Vital Signs: Vital Signs - 24 hr 10/31/19 10/31/19 10/31/19 11:50 17:34 17:39 Temperature 35.6 C L 36.1 C L 36.1 C L Heart Rate 88 76 Heart Rate [ 76 Brachial] Respiratory 15 12 16 Rate Blood Pressure 150/80 H 150/75 H Blood Pressure 135/57 H [Right Brachial artery] O2 Saturation 96 100 98 10/31/19 10/31/19 10/31/19 17:44 17:49 17:55 Temperature 36.1 C L 36.1 C L 36.1 C L Heart Rate 60 62 80 Heart Rate [ Brachial] Respiratory 14 14 14 Rate Blood Pressure 128/63 135/68 H 144/98 H Blood Pressure [Right Brachial artery] O2 Saturation 98 97 96 10/31/19 10/31/19 10/31/19 18:00 18:14 18:45 Temperature 36.1 C L 36.3 C L 36.3 C L Heart Rate 64 Heart Rate [ 70 60 Brachial] Respiratory 14 18 18 Rate Blood Pressure 132/84 H Blood Pressure 130/115 H 137/42 H [Right Brachial artery] O2 Saturation 96 97 95 10/31/19 10/31/19 11/01/19 20:05 23:25 04:00 Temperature 36.6 C 36.8 C 36.6 C Heart Rate Heart Rate [ 67 65 92 Brachial] Respiratory 18 18 18 Rate Blood Pressure Blood Pressure 135/52 H 142/52 H 133/45 H [Right Brachial artery] O2 Saturation 99 96 94 11/01/19 07:39 Temperature 37.1 C Heart Rate Heart Rate [ 92 Brachial] Respiratory 20 Rate Blood Pressure Blood Pressure 137/53 H [Right Brachial artery] O2 Saturation 95 Oxygen O2 Source Room air I&O (Last 24 Hrs): Intake and Output Totals x24h 10/30/19 10/31/19 11/01/19 23:59 23:59 23:59 Intake Total 1890 1533.333 Output Total 275 250 Balance 1615 1283.333 General: Alert, No acute distress HEENT: Atraumatic Neck: Supple Lymphatic: no adenopathy Neuro: Alert, Non Focal Cardiovascular: Regular rate, Normal S1, Normal S2 Respiratory: Chest non-tender, No respiratory distress, Breath sounds nml Abdomen: Normal bowel sounds, Soft Extremities: No edema, Normal pulses - Results Results: Laboratory Results WBC 10.1 x10^3/uL (4.8-10.8) 11/01/19 04:45 RBC 3.04 10^6/uL (4.20-5.40) L 11/01/19 04:45 Hgb 8.8 g/dL (12.0-16.0) L 11/01/19 04:45 Hct 29.0 % (37.0-47.0) L 11/01/19 04:45 MCV 95.1 fL (81.0-99.0) 11/01/19 04:45 MCH 28.9 pg (27.0-31.0) 11/01/19 04:45 MCHC 30.3 g/dL (32.0-36.0) L 11/01/19 04:45 RDW 15.4 % (12.0-15.0) H 11/01/19 04:45 Plt Count 164 10^3/uL (130-450) 11/01/19 04:45 MPV 11.5 fL (7.9-10.8) H 11/01/19 04:45 Reticulocyte % (Auto) 1.57 % (0.5-2.3) 11/01/19 04:45 Neut # (Auto) 8.2 10^3/uL (1.5-6.6) H 11/01/19 04:45 Lymph # (Auto) 1.3 10^3/uL (1.5-3.5) L 11/01/19 04:45 [place] # (Auto) 0.6 10^3/uL (0.0-1.0) 11/01/19 04:45 Eos # (Auto) 0.0 10^3/uL (0.0-0.7) 11/01/19 04:45 Baso # (Auto) 0.0 10^3/uL (0.0-0.1) 11/01/19 04:45 Absolute Nucleated RBC 0.00 x10^3/uL 11/01/19 04:45 Nucleated RBC % 0.0 /100WBC 11/01/19 04:45 Absolute Retic 0.048 10^6/uL (0.020-0.110) 11/01/19 04:45 Sodium 138 mmol/L (135-145) 11/01/19 04:45 Potassium 4.3 mmol/L (3.5-5.0) 11/01/19 04:45 Chloride 108 mmol/L (101-111) 11/01/19 04:45 Carbon Dioxide 25 mmol/L (21-32) 11/01/19 04:45 Anion Gap 5.0 (6-13) L 11/01/19 04:45 BUN 18 mg/dL (6-20) 11/01/19 04:45 Creatinine 0.9 mg/dL (0.4-1.0) 11/01/19 04:45 Estimated GFR (MDRD) 60 (>89) L 11/01/19 04:45 Glucose 164 mg/dL (70-100) H 11/01/19 04:45 Calcium 7.9 mg/dL (8.5-10.3) L 11/01/19 04:45 Iron 24 ug/dL (28-170) L 11/01/19 04:45 TIBC 239 ug/dL (250-450) L 11/01/19 04:45 % Saturation 10 % (20-50) L 11/01/19 04:45 Transferrin 171 mg/dL (192-382) L 11/01/19 04:45 Ferritin 119.6 ng/mL (11.0-306.8) 11/01/19 04:45 Lactate Dehydrogenase 128 IU/L (91-225) 11/01/19 04:45 Vitamin B12 161 pg/mL (180-914) L 11/01/19 04:45 Urine Color YELLOW 10/31/19 05:18 Urine Clarity CLEAR (CLEAR) 10/31/19 05:18 Urine pH 5.5 PH (5.0-7.5) 10/31/19 05:18 Ur Specific [place] 1.010 (1.002-1.030) 10/31/19 05:18 Urine Protein NEGATIVE mg/dL (NEGATIVE) 10/31/19 05:18 Urine Glucose (UA) NEGATIVE mg/dL (NEGATIVE) 10/31/19 05:18 Urine Ketones NEGATIVE mg/dL (NEGATIVE) 10/31/19 05:18 Urine Occult Blood NEGATIVE (NEGATIVE) 10/31/19 05:18 Urine Nitrite NEGATIVE (NEGATIVE) 10/31/19 05:18 Urine Bilirubin NEGATIVE (NEGATIVE) 10/31/19 05:18 Urine Urobilinogen 0.2 (NORMAL) E.U./dL (NORMAL) 10/31/19 05:18 Ur Leukocyte Esterase NEGATIVE (NEGATIVE) 10/31/19 05:18 Ur Microscopic Review NOT INDICATED 10/31/19 05:18 Urine Culture Comments NOT INDICATED 10/31/19 05:18 Sepsis Event Note (H) - Evaluation Current Stage of Sepsis: Ruled out ABX Reporting Has patient been on IV antibiotics over the past 48 hours?: No Current Medications - Current Medications Current Medications: Active Medications Acetaminophen (Tylenol) 650 mg PO Q6HR PRN PRN Reason: Pain 1 to 4 Last Admin: 11/01/19 06:33 Dose: 650 mg Acetaminophen (Tylenol) 650 - 975 mg PO Q4HR PRN PRN Reason: PAIN Aspirin (Breann) 325 mg PO BIDWM [facility] Cyanocobalamin (Vitamin B-12) 1,000 mcg IM ONCE ONE Stop: 11/01/19 12:01 Ferrous Sulfate (Feosol) 325 mg PO DAILYWM [facility] Hydralazine HCl (Apresoline Inj) 10 mg IVP Q4H PRN PRN Reason: PER PHYSICIAN ORDER Hydromorphone HCl (Dilaudid Inj Syringe) 0.5 mg IVP Q2H PRN PRN Reason: Pain 8 to 10 Last Admin: 10/31/19 10:44 Dose: 0.5 mg Sodium Chloride (Normal Saline 0.9%) 1,000 mls @ 100 mls/hr IV .Q10H [facility] Last Infusion: 11/01/19 07:05 Dose: 100 mls/hr Acetaminophen (Ofirmev) 100 mls @ 400 mls/hr IV Q6HR PRN PRN Reason: PAIN Levothyroxine Sodium (Synthroid) 50 mcg PO QDAC [facility] Losartan Potassium (Cozaar) 50 mg PO DAILY MYRA Oxycodone HCl (Roxicodone) 5 mg PO Q4HR PRN PRN Reason: Pain 5 to 7 Last Admin: 11/01/19 06:32 Dose: 5 mg Polyethylene Glycol (Miralax) 17 gm PO DAILY [facility] Prochlorperazine Edisylate (Compazine Inj) 10 mg IVP Q6HR PRN PRN Reason: Nausea / Vomiting Sodium Chloride (Normal Saline Flush 0.9%) 10 ml IVP PRN PRN PRN Reason: NEEDED PER PROVIDER ORDERS Last Admin: 10/31/19 10:44 Dose: 10 ml Sodium Chloride (Normal Saline Flush 0.9%) 10 ml IVP 0100,0900,1700 MYRA Last Admin: 11/01/19 10:08 Dose: Not Given Levothyroxine [Synthroid] 50 mcg PO QDAC 10/31/19 Losartan [Cozaar] 50 mg PO DAILY 10/31/19
[2019-11-01] MEDS ORDERED: NEOSTIGMINE 1 MG/1 ML 10 ML MDV IVP ONE (10:42)
[2019-11-01] MEDS ORDERED: ROCURONIUM 50 MG/5 ML VIAL IVP ONE (10:42)
[2019-11-01] MEDS ORDERED: ONDANSETRON 4 MG/2 ML VIAL IVP ONE (10:42)
[2019-11-01] MEDS ORDERED: DEXAMETHASONE 4 MG/ML VIAL IVP ONE (10:42)
[2019-11-01] MEDS ORDERED: PROPOFOL 200 MG/20 ML VIAL IVP ONE (10:42)
[2019-11-01] MEDS ORDERED: GLYCOPYRROLATE 1 MG/5 ML VIAL IVP ONE (10:42)
[2019-11-01] MEDS ORDERED: KETOROLAC 15 MG/ML VIAL IVP PRN (10:45)
[2019-11-01] MEDS: FERROUS SULFATE 325 MG TABLET PO SCH (10:56)
[2019-11-01] MEDS: polyethylene glycoL 3350 17 GM PACKET PO SCH (10:56)
[2019-11-01] MEDS: ASPIRIN 325 MG TABLET PO SCH ×2 (10:56→16:47)
[2019-11-01] MEDS: LOSARTAN 50 MG TABLET PO SCH (10:57)
[2019-11-01] MEDS ORDERED: CYANOCOBALAMIN 1,000 MCG/ML VIAL IM ONE (12:00)
[2019-11-01] MEDS: ACETAMINOPHEN 325 MG TABLET PO PRN ×2 (16:47→20:50)
[2019-11-02] MEDS: ACETAMINOPHEN 1,000 MG/100 ML 100 ML IV PRN ×2 (01:41→08:24)
[2019-11-02 05:43] LABS: BASOPHILS % (AUTO) 0.3 %; EOSINOPHILS % (AUTO) 0.4 %; HGB - HEMOGLOBIN 7.1 g/dL (12.0-16.0); LYMPHOCYTES # (AUTO) 2.8 10^3/uL (1.5-3.5); LYMPHOCYTES % (AUTO) 29.8 %; MEAN CORPUSCULAR VOLUME 96.6 fL (81.0-99.0); MEAN PLATELET VOLUME 11.4 fL (7.9-10.8); MONOCYTES # (AUTO) 0.9 10^3/uL (0.0-1.0); NEUTROPHILS # (AUTO) 5.5 10^3/uL (1.5-6.6); NEUTROPHILS % (AUTO) 59.1 %; PLT - PLATELET COUNT 127 10^3/uL (130-450); RED BLOOD COUNT 2.37 10^6/uL (4.20-5.40); RED CELL DISTRIBUTION WIDTH 15.8 % (12.0-15.0); WHITE BLOOD COUNT 9.3 x10^3/uL (4.8-10.8)
--- NOTE | 2019-11-02 05:54 | Ultrasound Report ---
Reason: oliguria Procedure Date: 11/02/2019 Accession Number: [id number] / [id number] Procedure: US - Retroperitoneal CPT Code: Final Report FULL RESULT: EXAM: RENAL ULTRASOUND EXAM DATE: 11/02/2019 04:29 AM. CLINICAL HISTORY: Oliguria. COMPARISON: None. TECHNIQUE: Real-time scanning was performed with static images obtained. FINDINGS: Right Kidney: 9.8 x 4.5 x 4.8 cm. Limited evaluation due to body habitus, positioning and bowel gas. No obvious hydronephrosis, calculus or mass on provided images. Left Kidney: 9.8 x 4.8 x 4.2 cm. Limited evaluation due to body habitus, positioning and bowel gas. No obvious hydronephrosis, calculus or mass on provided images. Bladder: Posey catheter in the bladder. Bilateral jets not seen. Bladder volume is 82.5 cc. Other: Echogenic liver. IMPRESSION: 1. Limited renal ultrasound. No hydronephrosis or other renal abnormality evident allowing for limitations of exam. 2. Posey catheter in the bladder. Ureteral jets not seen. 3. Echogenic liver compatible with hepatic steatosis. RADIA
[2019-11-02 05:55] LABS: ALBUMIN 2.5 g/dL (3.2-5.5); BILIRUBIN,TOTAL 0.5 mg/dL (0.2-1.0); CALCIUM 7.4 mg/dL (8.5-10.3); CREATININE 0.8 mg/dL (0.4-1.0); TOTAL PROTEIN 4.9 g/dL (6.7-8.2)
[2019-11-02] MEDS: LEVOTHYROXINE 25 MCG TABLET PO SCH (06:43)
[2019-11-02] MEDS ORDERED: SODIUM CHLORIDE 0.9% 1,000 ML IV SCH (07:24)
--- NOTE | 2019-11-02 08:11 | PROVIDER PROGRESS NOTE ---
Subjective - Prog Note Date Prog Note Date: 11/02/19 Prog Note Time: 15:00 - Subjective Pt reports feeling: No change Subjective: She says she is doing "good" in bed. She denies current pain. She does report having had some pain with physical therapy yesterday. No cardiovascular symptoms reported. Daughter at the bedside Objective - Vital Signs/Intake & Output Vital Signs: Vital Signs x48h Temp Pulse Resp BP Pulse Ox 11/02/19 07:25 36.3 C L 76 18 125/46 L 97 11/02/19 04:00 36.7 C 85 18 113/45 L 95 Intake & Output: Intake & Output 10/30/19 10/31/19 11/01/19 11/02/19 23:59 23:59 23:59 23:59 Intake Total 1890 3970.000 619.167 Output Total 275 725 Balance 1615 3245.000 619.167 - Lab Results Fish Bones: 11/02/19 05:30 11/02/19 05:30 Other Labs: Lab Results x24hrs 11/02/19 11/02/19 11/02/19 Range/Units 05:30 05:30 05:30 WBC 9.3 (4.8-10.8) x10^3/uL RBC 2.37 L (4.20-5.40) 10^6/uL Hgb 7.1 L (12.0-16.0) g/dL Hct 22.9 L (37.0-47.0) % MCV 96.6 (81.0-99.0) fL MCH 30.0 (27.0-31.0) pg MCHC 31.0 L (32.0-36.0) g/dL RDW 15.8 H (12.0-15.0) % Plt Count 127 L (130-450) 10^3/uL MPV 11.4 H (7.9-10.8) fL Neut # (Auto) 5.5 (1.5-6.6) 10^3/uL Lymph # (Auto) 2.8 (1.5-3.5) 10^3/uL Mobile # (Auto) 0.9 (0.0-1.0) 10^3/uL Eos # (Auto) 0.0 (0.0-0.7) 10^3/uL Baso # (Auto) 0.0 (0.0-0.1) 10^3/uL Absolute Nucleated RBC 0.00 x10^3/uL Nucleated RBC % 0.0 /100WBC Sodium 138 (135-145) mmol/L Potassium 3.9 (3.5-5.0) mmol/L Chloride 108 (101-111) mmol/L Carbon Dioxide 26 (21-32) mmol/L Anion Gap 4.0 L (6-13) BUN 18 (6-20) mg/dL Creatinine 0.8 (0.4-1.0) mg/dL Estimated GFR (MDRD) 69 L (>89) Glucose 115 H (70-100) mg/dL Calcium 7.4 L (8.5-10.3) mg/dL Magnesium 2.0 (1.7-2.8) mg/dL Iron (28-170) ug/dL TIBC (250-450) ug/dL % Saturation (20-50) % Transferrin (192-382) mg/dL Ferritin (11.0-306.8) ng/mL Total Bilirubin 0.5 (0.2-1.0) mg/dL AST 43 H (10-42) IU/L ALT 18 (10-60) IU/L Alkaline Phosphatase 40 L (42-121) IU/L Lactate Dehydrogenase (91-225) IU/L Total Protein 4.9 L (6.7-8.2) g/dL Albumin 2.5 L (3.2-5.5) g/dL Globulin 2.4 (2.1-4.2) g/dL Albumin/Globulin Ratio 1.0 (1.0-2.2) Vitamin B12 (180-914) pg/mL TSH 3.26 (0.34-5.60) uIU/mL 11/01/19 11/01/19 11/01/19 Range/Units 14:02 04:45 04:45 WBC (4.8-10.8) x10^3/uL RBC (4.20-5.40) 10^6/uL Hgb 9.0 L (12.0-16.0) g/dL Hct 30.1 L (37.0-47.0) % MCV (81.0-99.0) fL MCH (27.0-31.0) pg MCHC (32.0-36.0) g/dL RDW (12.0-15.0) % Plt Count (130-450) 10^3/uL MPV (7.9-10.8) fL Neut # (Auto) (1.5-6.6) 10^3/uL Lymph # (Auto) (1.5-3.5) 10^3/uL [place] # (Auto) (0.0-1.0) 10^3/uL Eos # (Auto) (0.0-0.7) 10^3/uL Baso # (Auto) (0.0-0.1) 10^3/uL Absolute Nucleated RBC x10^3/uL Nucleated RBC % /100WBC Sodium (135-145) mmol/L Potassium (3.5-5.0) mmol/L Chloride (101-111) mmol/L Carbon Dioxide (21-32) mmol/L Anion Gap (6-13) BUN (6-20) mg/dL Creatinine (0.4-1.0) mg/dL Estimated GFR (MDRD) (>89) Glucose (70-100) mg/dL Calcium (8.5-10.3) mg/dL Magnesium (1.7-2.8) mg/dL Iron (28-170) ug/dL TIBC (250-450) ug/dL % Saturation (20-50) % Transferrin (192-382) mg/dL Ferritin 119.6 (11.0-306.8) ng/mL Total Bilirubin (0.2-1.0) mg/dL AST (10-42) IU/L ALT (10-60) IU/L Alkaline Phosphatase (42-121) IU/L Lactate Dehydrogenase 128 (91-225) IU/L Total Protein (6.7-8.2) g/dL Albumin (3.2-5.5) g/dL Globulin (2.1-4.2) g/dL Albumin/Globulin Ratio (1.0-2.2) Vitamin B12 161 L (180-914) pg/mL TSH (0.34-5.60) uIU/mL 11/01/19 Range/Units 04:45 WBC (4.8-10.8) x10^3/uL RBC (4.20-5.40) 10^6/uL Hgb (12.0-16.0) g/dL Hct (37.0-47.0) % MCV (81.0-99.0) fL MCH (27.0-31.0) pg MCHC (32.0-36.0) g/dL RDW (12.0-15.0) % Plt Count (130-450) 10^3/uL MPV (7.9-10.8) fL Neut # (Auto) (1.5-6.6) 10^3/uL Lymph # (Auto) (1.5-3.5) 10^3/uL [place] # (Auto) (0.0-1.0) 10^3/uL Eos # (Auto) (0.0-0.7) 10^3/uL Baso # (Auto) (0.0-0.1) 10^3/uL Absolute Nucleated RBC x10^3/uL Nucleated RBC % /100WBC Sodium (135-145) mmol/L Potassium (3.5-5.0) mmol/L Chloride (101-111) mmol/L Carbon Dioxide (21-32) mmol/L Anion Gap (6-13) BUN (6-20) mg/dL Creatinine (0.4-1.0) mg/dL Estimated GFR (MDRD) (>89) Glucose (70-100) mg/dL Calcium (8.5-10.3) mg/dL Magnesium (1.7-2.8) mg/dL Iron 24 L (28-170) ug/dL TIBC 239 L (250-450) ug/dL % Saturation 10 L (20-50) % Transferrin 171 L (192-382) mg/dL Ferritin (11.0-306.8) ng/mL Total Bilirubin (0.2-1.0) mg/dL AST (10-42) IU/L ALT (10-60) IU/L Alkaline Phosphatase (42-121) IU/L Lactate Dehydrogenase (91-225) IU/L Total Protein (6.7-8.2) g/dL Albumin (3.2-5.5) g/dL Globulin (2.1-4.2) g/dL Albumin/Globulin Ratio (1.0-2.2) Vitamin B12 (180-914) pg/mL TSH (0.34-5.60) uIU/mL - Other Results/Comments Other Results/Comments: Left lower extremity neurovascular unchanged. She is easily able to flex extend toes and ankle. No calf tenderness noted. Able to flex hip and knee 45+ degrees no pain with gentle logrolling. Thigh soft. Minimal ecchymosis by middle incision but no erythema appreciated dressings clean dry intact. Sepsis Event Note (H) - Evaluation Current Stage of Sepsis: Ruled out Assessment/Plan - Problem List (1) Comminuted fracture of left hip Impression: Patient orthopedically stable with regards to left femur fracture and surgery. She does have decreased hemoglobin and hematocrit. No CV sx. Vital signs are stable. Will defer to hospitalist regarding potential for transfusion. She did receive a bolus yesterday. Continue current treatment with regards to analgesics, perioperative DVT prophylaxis mechanical and chemical. Patient must keep foot pumps on while in bed at all times. She will be out of bed foot flat weightbearing left lower extremity. She is encouraged to do as much foot ankle knee and hip motion when at rest in bed or sitting as possible. The main precaution would be foot flat weightbearing left lower extremity with transfers and ambulation with assistance and assistive device. Ultimately for long-term facility discharge when appropriate. Once discharged orthopedic follow-up 10 to 14 days postop or sooner as needed. Patient and patient's daughter's questions were answered the above reviewed they verbalized understanding agreement satisfaction with above plan Qualifiers: Encounter type: subsequent encounter
[2019-11-02] MEDS: ASPIRIN 325 MG TABLET PO SCH ×2 (08:20→16:45)
[2019-11-02] MEDS: SENNA 8.6 MG TABLET PO SCH (08:21)
[2019-11-02] MEDS: FERROUS SULFATE 325 MG TABLET PO SCH (08:22)
[2019-11-02] MEDS: DOCUSATE SODIUM 250 MG CAPSULE PO SCH (08:22)
[2019-11-02] MEDS: polyethylene glycoL 3350 17 GM PACKET PO SCH (08:23)
[2019-11-02] MEDS: LOSARTAN 50 MG TABLET PO SCH (08:23)
[2019-11-02] MEDS: SODIUM CHLORIDE 0.9% 1,000 ML IV SCH ×2 (08:53→20:05)
[2019-11-02] MEDS: SODIUM CHLORIDE FLUSH 0.9% 10 ML SYRINGE IVP SCH ×3 (08:54→23:15)
[2019-11-02] MEDS: HYDROmorphone 0.5 MG/0.5 ML SYRINGE IVP PRN (08:54)
[2019-11-02] MEDS: KETOROLAC 15 MG/ML VIAL IVP PRN (10:14)
[2019-11-02] MEDS: oxyCODONE 5 MG TABLET PO PRN ×2 (10:14→19:46)
--- NOTE | 2019-11-02 11:06 | PROVIDER PROGRESS NOTE ---
Assessment/Plan - Problem List (1) Comminuted fracture of left hip Qualifiers: Encounter type: subsequent encounter Assessment/Plan: 11/02 day two from s/p left hip fracture repair. pt is alert and more oriented today, plus two, person and place but not time. pt report she felt better today. she denies chest pain, fever or chill, shortness of breath. continue followup orthopedics surgeon continue PT/OT evaluation and treatment continue Pain control consulted with SW for d/c planing 11/01 day one from s/p left hip fracture repair continue DVT prophylaxis per surgeon order incentive spirometer PT/OT evaluation and treatment continue Pain control consulted with SW for d/c planing (2) Hypothyroidism Assessment/Plan: 11/02 normal TSH, continue home levothyroxine check TSH, and Continue with her p.o. thyroid replacement (3) Hypertension Assessment/Plan: stable, Resume Cozzar, home meds (4) anemia 11/02, HGB is 7.1 today, some hemodilation after IVF of NS for her oliguria. pt is hemodynamic stable, asymptomatic for anemia. pt denies GI bleed continue H&H monitor pt continue iron pill, pt has slight iron deficiency check occult stool pt also present poor appetite. For this problem, consulted with type rolling machine operator. pt's HGB is 8.8, significantly drip from 12 at the admission, it is likely from acute blood loss from surgery. clinically pt is hemodynamic stable. anemia study reveals slight iron deficiency, replacement of iron H&H to monitor (5) oliguria 11/02 nurse report pt had oliguria at 275 ml the previous day. Yesterday pt had 725 ml, normal urine color, no darkness. Today pt already have 450 ml, so it is resolved. US of retroperitonel is unremarkable. continue gently IVF to keep pt hydration encourage pt drink and eat diet as appropriate enough D/C [place], continue closely monitor Urine out-pt - Current Meds Current Meds: Current Medications Generic Name Dose Route Start Last Admin Trade Name Freq PRN Reason Stop Dose Admin Acetaminophen 650 - 975 mg 10/31/19 17:35 11/01/19 20:50 Tylenol PO 650 mg Q4HR PRN Administration PAIN Aspirin 325 mg 11/01/19 08:00 11/02/19 08:20 Breann PO 325 mg BIDWM MYRA Administration Docusate Sodium 250 - 500 mg 11/02/19 09:00 11/02/19 08:22 Colace 250mg Capsule PO 500 mg DAILY MYRA Administration Ferrous Sulfate 325 mg 11/01/19 10:00 11/02/19 08:22 Feosol PO 325 mg DAILYWM MYRA Administration Hydromorphone HCl 0.5 mg 10/31/19 04:42 11/02/19 08:54 Dilaudid Inj Syringe IVP 0.5 mg Q2H PRN Administration Pain 8 to 10 Acetaminophen 100 mls @ 400 mls/hr 10/31/19 17:35 11/02/19 08:53 Ofirmev IV Infused Q6HR PRN Infusion PAIN Sodium Chloride 1,000 mls @ 83.3 mls/hr 11/02/19 08:40 11/02/19 08:53 Normal Saline 0.9% IV 11/03/19 08:40 83.3 mls/hr .Q12H1M MYRA Administration Ketorolac Tromethamine 15 mg 11/02/19 08:21 11/02/19 10:14 Toradol Inj (15mg) IVP 11/07/19 08:20 15 mg Q6HR PRN Administration PAIN Levothyroxine Sodium 50 mcg 11/02/19 07:00 11/02/19 06:43 Synthroid PO 50 mcg QDAC MYRA Administration Losartan Potassium 50 mg 11/01/19 09:00 11/02/19 08:23 Cozaar PO 50 mg DAILY MYRA Administration Oxycodone HCl 5 mg 10/31/19 04:42 11/02/19 10:14 Roxicodone PO 5 mg Q4HR PRN Administration Pain 5 to 7 Polyethylene Glycol 17 gm 11/01/19 09:00 11/02/19 08:23 Miralax PO 17 gm DAILY MYRA Administration Senna 8.6 - 17.2 mg 11/02/19 09:00 11/02/19 08:21 Senokot PO 17.2 mg DAILY MYRA Administration Sodium Chloride 10 ml 10/31/19 04:42 10/31/19 10:44 Normal Saline Flush 0.9% IVP 10 ml PRN PRN Administration NEEDED PER PROVIDER ORDERS Sodium Chloride 10 ml 10/31/19 09:00 11/02/19 08:54 Normal Saline Flush 0.9% IVP 10 ml 0100,0900,1700 [facility] Administration - Lab Result Fish Bone Diagrams: 11/02/19 05:30 11/02/19 05:30 - Additional Planning My Orders: My Active Orders 11/02/19 07:00 Levothyroxine [Synthroid] 50 mcg PO QDAC 11/02/19 08:21 Nutrition Consult [CONS] Routine Ketorolac Inj (15Mg) [Toradol Inj (15Mg)] 15 mg IVP Q6HR PRN 11/02/19 08:40 Sodium Chloride 0.9% [Normal Saline 0.9%] 1,000 ml IV 83.3 mls/hr 11/02/19 09:00 Docusate Sodium 250Mg Capsule [Colace 250Mg Capsule] 250 - 500 mg PO DAILY Senna [Senokot] 8.6 - 17.2 mg PO DAILY 11/02/19 12:00 H&H [HEMOGLOBIN AND HEMATOCRIT] [HEME] Timed Subjective - Subjective Patient Reports: Feeling Better Objective Vital Signs: Vital Signs - 24 hr 11/01/19 11/01/19 11/01/19 11:15 15:56 20:00 Temperature 36.9 C 37 C 36.4 C L Heart Rate [ 104 H 81 95 Brachial] Respiratory 18 18 20 Rate Blood Pressure 128/53 L 120/46 L 113/44 L [Right Brachial artery] O2 Saturation 94 96 98 11/01/19 11/02/19 11/02/19 23:42 04:00 07:25 Temperature 36.9 C 36.7 C 36.3 C L Heart Rate [ 69 85 76 Brachial] Respiratory 18 18 18 Rate Blood Pressure 103/48 L 113/45 L 125/46 L [Right Brachial artery] O2 Saturation 94 95 97 Oxygen O2 Source Room air I&O (Last 24 Hrs): Intake and Output Totals x24h 10/31/19 11/01/19 11/02/19 23:59 23:59 23:59 Intake Total 1890 3970.000 2225.000 Output Total 275 725 450 Balance 1615 3245.000 1775.000 General: Alert, No acute distress HEENT: Atraumatic, PERRLA, EOMI Neck: Supple, No thyromegaly Lymphatic: no adenopathy Neuro: Alert, Non Focal Cardiovascular: Regular rate, Normal S1, Normal S2 Respiratory: Chest non-tender, No respiratory distress, Breath sounds nml Abdomen: Normal bowel sounds, Soft Extremities: Normal pulses - Results Results: Laboratory Results WBC 9.3 x10^3/uL (4.8-10.8) 11/02/19 05:30 RBC 2.37 10^6/uL (4.20-5.40) L 11/02/19 05:30 Hgb 7.1 g/dL (12.0-16.0) L 11/02/19 05:30 Hct 22.9 % (37.0-47.0) L 11/02/19 05:30 MCV 96.6 fL (81.0-99.0) 11/02/19 05:30 MCH 30.0 pg (27.0-31.0) 11/02/19 05:30 MCHC 31.0 g/dL (32.0-36.0) L 11/02/19 05:30 RDW 15.8 % (12.0-15.0) H 11/02/19 05:30 Plt Count 127 10^3/uL (130-450) L 11/02/19 05:30 MPV 11.4 fL (7.9-10.8) H 11/02/19 05:30 Reticulocyte % (Auto) 1.57 % (0.5-2.3) 11/01/19 04:45 Neut # (Auto) 5.5 10^3/uL (1.5-6.6) 11/02/19 05:30 Lymph # (Auto) 2.8 10^3/uL (1.5-3.5) 11/02/19 05:30 [place] # (Auto) 0.9 10^3/uL (0.0-1.0) 11/02/19 05:30 Eos # (Auto) 0.0 10^3/uL (0.0-0.7) 11/02/19 05:30 Baso # (Auto) 0.0 10^3/uL (0.0-0.1) 11/02/19 05:30 Absolute Nucleated RBC 0.00 x10^3/uL 11/02/19 05:30 Nucleated RBC % 0.0 /100WBC 11/02/19 05:30 Absolute Retic 0.048 10^6/uL (0.020-0.110) 11/01/19 04:45 Sodium 138 mmol/L (135-145) 11/02/19 05:30 Potassium 3.9 mmol/L (3.5-5.0) 11/02/19 05:30 Chloride 108 mmol/L (101-111) 11/02/19 05:30 Carbon Dioxide 26 mmol/L (21-32) 11/02/19 05:30 Anion Gap 4.0 (6-13) L 11/02/19 05:30 BUN 18 mg/dL (6-20) 11/02/19 05:30 Creatinine 0.8 mg/dL (0.4-1.0) 11/02/19 05:30 Estimated GFR (MDRD) 69 (>89) L 11/02/19 05:30 Glucose 115 mg/dL (70-100) H 11/02/19 05:30 Calcium 7.4 mg/dL (8.5-10.3) L 11/02/19 05:30 Magnesium 2.0 mg/dL (1.7-2.8) 11/02/19 05:30 Iron 24 ug/dL (28-170) L 11/01/19 04:45 TIBC 239 ug/dL (250-450) L 11/01/19 04:45 % Saturation 10 % (20-50) L 11/01/19 04:45 Transferrin 171 mg/dL (192-382) L 11/01/19 04:45 Ferritin 119.6 ng/mL (11.0-306.8) 11/01/19 04:45 Total Bilirubin 0.5 mg/dL (0.2-1.0) 11/02/19 05:30 AST 43 IU/L (10-42) H 11/02/19 05:30 ALT 18 IU/L (10-60) 11/02/19 05:30 Alkaline Phosphatase 40 IU/L (42-121) L 11/02/19 05:30 Lactate Dehydrogenase 128 IU/L (91-225) 11/01/19 04:45 Total Protein 4.9 g/dL (6.7-8.2) L 11/02/19 05:30 Albumin 2.5 g/dL (3.2-5.5) L 11/02/19 05:30 Globulin 2.4 g/dL (2.1-4.2) 11/02/19 05:30 Albumin/Globulin Ratio 1.0 (1.0-2.2) 11/02/19 05:30 Vitamin B12 161 pg/mL (180-914) L 11/01/19 04:45 TSH 3.26 uIU/mL (0.34-5.60) 11/02/19 05:30 Urine Color YELLOW 10/31/19 05:18 Urine Clarity CLEAR (CLEAR) 10/31/19 05:18 Urine pH 5.5 PH (5.0-7.5) 10/31/19 05:18 Ur Specific [place] 1.010 (1.002-1.030) 10/31/19 05:18 Urine Protein NEGATIVE mg/dL (NEGATIVE) 10/31/19 05:18 Urine Glucose (UA) NEGATIVE mg/dL (NEGATIVE) 10/31/19 05:18 Urine Ketones NEGATIVE mg/dL (NEGATIVE) 10/31/19 05:18 Urine Occult Blood NEGATIVE (NEGATIVE) 10/31/19 05:18 Urine Nitrite NEGATIVE (NEGATIVE) 10/31/19 05:18 Urine Bilirubin NEGATIVE (NEGATIVE) 10/31/19 05:18 Urine Urobilinogen 0.2 (NORMAL) E.U./dL (NORMAL) 10/31/19 05:18 Ur Leukocyte Esterase NEGATIVE (NEGATIVE) 10/31/19 05:18 Ur Microscopic Review NOT INDICATED 10/31/19 05:18 Urine Culture Comments NOT INDICATED 10/31/19 05:18 Sepsis Event Note (H) - Evaluation Current Stage of Sepsis: Ruled out ABX Reporting Has patient been on IV antibiotics over the past 48 hours?: No Current Medications - Current Medications Current Medications: Active Medications Acetaminophen (Tylenol) 650 - 975 mg PO Q4HR PRN PRN Reason: PAIN Last Admin: 11/01/19 20:50 Dose: 650 mg Aspirin (Breann) 325 mg PO BIDWM [facility] Last Admin: 11/02/19 08:20 Dose: 325 mg Docusate Sodium (Colace 250mg Capsule) 250 - 500 mg PO DAILY [facility] Last Admin: 11/02/19 08:22 Dose: 500 mg Ferrous Sulfate (Feosol) 325 mg PO DAILYWM [facility] Last Admin: 11/02/19 08:22 Dose: 325 mg Hydralazine HCl (Apresoline Inj) 10 mg IVP Q4H PRN PRN Reason: PER PHYSICIAN ORDER Hydromorphone HCl (Dilaudid Inj Syringe) 0.5 mg IVP Q2H PRN PRN Reason: Pain 8 to 10 Last Admin: 11/02/19 08:54 Dose: 0.5 mg Acetaminophen (Ofirmev) 100 mls @ 400 mls/hr IV Q6HR PRN PRN Reason: PAIN Last Infusion: 11/02/19 08:53 Dose: Infused Sodium Chloride (Normal Saline 0.9%) 1,000 mls @ 83.3 mls/hr IV .Q12H1M [facility] Stop: 11/03/19 08:40 Last Admin: 11/02/19 08:53 Dose: 83.3 mls/hr Ketorolac Tromethamine (Toradol Inj (15mg)) 15 mg IVP Q6HR PRN PRN Reason: PAIN Stop: 11/07/19 08:20 Last Admin: 11/02/19 10:14 Dose: 15 mg Levothyroxine Sodium (Synthroid) 50 mcg PO QDAC [facility] Last Admin: 11/02/19 06:43 Dose: 50 mcg Losartan Potassium (Cozaar) 50 mg PO DAILY [facility] Last Admin: 11/02/19 08:23 Dose: 50 mg Oxycodone HCl (Roxicodone) 5 mg PO Q4HR PRN PRN Reason: Pain 5 to 7 Last Admin: 11/02/19 10:14 Dose: 5 mg Polyethylene Glycol (Miralax) 17 gm PO DAILY [facility] Last Admin: 11/02/19 08:23 Dose: 17 gm Prochlorperazine Edisylate (Compazine Inj) 10 mg IVP Q6HR PRN PRN Reason: Nausea / Vomiting Senna (Senokot) 8.6 - 17.2 mg PO DAILY [facility] Last Admin: 11/02/19 08:21 Dose: 17.2 mg Sodium Chloride (Normal Saline Flush 0.9%) 10 ml IVP PRN PRN PRN Reason: NEEDED PER PROVIDER ORDERS Last Admin: 10/31/19 10:44 Dose: 10 ml Sodium Chloride (Normal Saline Flush 0.9%) 10 ml IVP 0100,0900,1700 [facility] Last Admin: 11/02/19 08:54 Dose: 10 ml Levothyroxine [Synthroid] 50 mcg PO QDAC 10/31/19 Losartan [Cozaar] 50 mg PO DAILY 10/31/19
[2019-11-02 12:24] LABS: HGB - HEMOGLOBIN 7.9 g/dL (12.0-16.0)
[2019-11-02] MEDS: CHOLECALCIFEROL 1,000 UNIT TABLET PO SCH (12:39)
[2019-11-02] MEDS: ACETAMINOPHEN 325 MG TABLET PO PRN (19:45)
[2019-11-02] MEDS: CALCIUM CARBONATE CHEW 500 MG TABLET PO SCH (20:04)
[2019-11-03 06:10] LABS: BASOPHILS % (AUTO) 0.3 %; EOSINOPHILS # (AUTO) 0.2 10^3/uL (0.0-0.7); EOSINOPHILS % (AUTO) 2.1 %; HGB - HEMOGLOBIN 7.1 g/dL (12.0-16.0); LYMPHOCYTES # (AUTO) 2.4 10^3/uL (1.5-3.5); LYMPHOCYTES % (AUTO) 27.8 %; MEAN CORPUSCULAR HEMOGLOBIN 29.8 pg (27.0-31.0); MEAN CORPUSCULAR HGB CONC 31.3 g/dL (32.0-36.0); MEAN CORPUSCULAR VOLUME 95.4 fL (81.0-99.0); MEAN PLATELET VOLUME 11.6 fL (7.9-10.8); MONOCYTES # (AUTO) 0.8 10^3/uL (0.0-1.0); MONOCYTES % (AUTO) 8.7 %; NEUTROPHILS # (AUTO) 5.3 10^3/uL (1.5-6.6); NEUTROPHILS % (AUTO) 60.9 %; PLT - PLATELET COUNT 141 10^3/uL (130-450); RED BLOOD COUNT 2.38 10^6/uL (4.20-5.40); RED CELL DISTRIBUTION WIDTH 15.9 % (12.0-15.0); WHITE BLOOD COUNT 8.7 x10^3/uL (4.8-10.8)
[2019-11-03 06:17] LABS: CREATININE 0.8 mg/dL (0.4-1.0)
[2019-11-03] MEDS: LEVOTHYROXINE 25 MCG TABLET PO SCH (06:33)
[2019-11-03] MEDS: ACETAMINOPHEN 325 MG TABLET PO PRN ×3 (06:33→16:40)
[2019-11-03] MEDS: polyethylene glycoL 3350 17 GM PACKET PO SCH (08:13)
[2019-11-03] MEDS: SENNA 8.6 MG TABLET PO SCH (08:14)
[2019-11-03] MEDS: CALCIUM CARBONATE CHEW 500 MG TABLET PO SCH ×2 (08:14→20:35)
[2019-11-03] MEDS: CHOLECALCIFEROL 1,000 UNIT TABLET PO SCH (08:14)
[2019-11-03] MEDS: DOCUSATE SODIUM 250 MG CAPSULE PO SCH (08:14)
[2019-11-03] MEDS: FERROUS SULFATE 325 MG TABLET PO SCH (08:15)
[2019-11-03] MEDS: LOSARTAN 50 MG TABLET PO SCH (08:15)
[2019-11-03] MEDS: ASPIRIN 325 MG TABLET PO SCH ×2 (08:15→16:40)
[2019-11-03] MEDS: SODIUM CHLORIDE FLUSH 0.9% 10 ML SYRINGE IVP SCH ×2 (08:16→16:40)
[2019-11-03] MEDS: KETOROLAC 15 MG/ML VIAL IVP PRN (09:46)
[2019-11-03] MEDS: oxyCODONE 5 MG TABLET PO PRN (09:46)
[2019-11-03] MEDS: SODIUM CHLORIDE FLUSH 0.9% 10 ML SYRINGE IVP PRN (09:46)
--- NOTE | 2019-11-03 10:02 | PROVIDER PROGRESS NOTE ---
Assessment/Plan - Problem List (1) Intertrochanteric fracture of left femur Assessment/Plan: -Sustained a mechanical fall on stairs in the early a.m. hours 10/31/2019 -Thought to be all mechanical given the situation of new surroundings, poor lighting and no other syncope episodes -Post op day #3 after a left hip ORIF repair with Dr. Graf -Progressing with PT after given pain medications -Stood up today, but on second attempt unsuccessful -Using a sling lift by nursing for transfer from the bed to the chair -Continue PT, nursing cares, treat pain (2) Uncontrolled pain: - Status post left hip surgical repair - Hip is not bothersome unless moving and/or during therapy - Chronic low back pain for the past several years as a contributing factor - IV Toradol, PO oxycodone, Tylenol prior to moving and PRN - No recent charted BMs, continues on BM meds - Continue to monitor for improvement (3) Constipation: - Now on oxycodone, IV dilaudid as needed (last dose on 11/02) - No prior home narcotics - No BMs charted for the past several days ~ 10/30 - Worsening low back pain, may be worsened by sluggish bowels - Continue to monitor, add additional agents if needed (4) Hypothyroidism: - Normal TSH on 11/02 at 3.26 - Takes home levothyroxine 50 mcg, continued here (5) Hypertension: - B/Ps normotensive at 129/53, heart rates 70-90s - Nothing significant on telemetry, now discontinued - Takes Cozzar 50 mg at home, continued here - Continue to monitor vital signs, stop telemetry (6) Iron deficiency anemia: - Slow drift downtrend since surgical repair of hip - Recent iron studies show iron deficient - H/H 7.1/22.7, no acute s/s of acute bleeding on exam - Started on iron supplement on 11/01 - Routine labs (7) oliguria: - Continued low urine output, although no longer has a mclaughlin, (inaccurate with pure wick device) - Nursing and patient report urine is dark, non-maldourus, and concentrated appearing - Patient denies dysuria, hematuria, or retention - Urinalysis upon admission appears normal, no infection, no WBC count - Bilateral kidney US was performed on 11/02, showing no cause of low urine output - BUN/Creatinine are normal at 17/0.8, GFR 69 - Status post IVFs, mclaughlin out - Continue routine labs, encourage PO fluids (8) Physical debility: - Per PT notes, patient is recommended to be discharged to a SNF - Contributing factor of chronic obesity, now post op day #3 - Continue frequent nursing cares, await SNF placement - Current Meds Current Meds: Current Medications Generic Name Dose Route Start Last Admin Trade Name Olena PRN Reason Stop Dose Admin Acetaminophen 650 - 975 mg 10/31/19 17:35 11/03/19 09:01 Tylenol PO 650 mg Q4HR PRN Administration PAIN Aspirin 325 mg 11/01/19 08:00 11/03/19 08:15 Breann PO 325 mg BIDWM [facility] Administration Calcium Carbonate/Glycine 500 mg 11/02/19 21:00 11/03/19 08:14 Tums PO 500 mg BID [facility] Administration Cholecalciferol 2,000 unit 11/02/19 12:00 11/03/19 08:14 Vitamin D3 PO 2,000 unit DAILY [facility] Administration Docusate Sodium 250 - 500 mg 11/02/19 09:00 11/03/19 08:14 Colace 250mg Capsule PO 500 mg DAILY [facility] Administration Ferrous Sulfate 325 mg 11/01/19 10:00 11/03/19 08:15 Feosol PO 325 mg DAILYWM [facility] Administration Hydromorphone HCl 0.5 mg 10/31/19 04:42 11/02/19 08:54 Dilaudid Inj Syringe IVP 0.5 mg Q2H PRN Administration Pain 8 to 10 Acetaminophen 100 mls @ 400 mls/hr 10/31/19 17:35 11/02/19 08:53 Ofirmev IV Infused Q6HR PRN Infusion PAIN Ketorolac Tromethamine 15 mg 11/02/19 08:21 11/03/19 09:46 Toradol Inj (15mg) IVP 11/07/19 08:20 15 mg Q6HR PRN Administration PAIN Levothyroxine Sodium 50 mcg 11/02/19 07:00 11/03/19 06:33 Synthroid PO 50 mcg QDAC [facility] Administration Losartan Potassium 50 mg 11/01/19 09:00 11/03/19 08:15 Cozaar PO 50 mg DAILY [facility] Administration Oxycodone HCl 5 mg 10/31/19 04:42 11/03/19 09:46 Roxicodone PO 5 mg Q4HR PRN Administration Pain 5 to 7 Polyethylene Glycol 17 gm 11/01/19 09:00 11/03/19 08:13 Miralax PO 17 gm DAILY [facility] Administration Senna 8.6 - 17.2 mg 11/02/19 09:00 11/03/19 08:14 Senokot PO 17.2 mg DAILY [facility] Administration Sodium Chloride 10 ml 10/31/19 04:42 11/03/19 09:46 Normal Saline Flush 0.9% IVP 10 ml PRN PRN Administration NEEDED PER PROVIDER ORDERS Sodium Chloride 10 ml 10/31/19 09:00 11/03/19 08:16 Normal Saline Flush 0.9% IVP 10 ml 0100,[id number],1700 MYRA Administration - Lab Result Lab results reviewed: Yes Fish Bone Diagrams: 11/03/19 05:35 11/03/19 05:35 Subjective - Subjective Patient Reports: Back Pain, Constipation, Fatigue Nursing Reports: No Complaints, Pain (chronic, acute to left hip) Objective Vital Signs: Vital Signs - 24 hr 11/02/19 11/02/19 11/02/19 11:50 16:00 16:20 Temperature 36.8 C 36.9 C Heart Rate [ 65 67 79 Brachial] Respiratory 18 18 Rate Blood Pressure 94/60 112/49 L [Left Brachial artery] Blood Pressure 114/53 L [Right Brachial artery] O2 Saturation 95 97 11/03/19 11/03/19 11/03/19 00:34 05:25 07:26 Temperature 36.9 C 37.2 C 36.9 C Heart Rate [ 82 78 76 Brachial] Respiratory 18 18 14 Rate Blood Pressure 133/56 H 138/53 H 138/49 H [Left Brachial artery] Blood Pressure [Right Brachial artery] O2 Saturation 97 97 95 Oxygen O2 Source Room air I&O (Last 24 Hrs): Intake and Output Totals x24h 11/01/19 11/02/19 11/03/19 23:59 23:59 23:59 Intake Total 3970.000 3905.470 1220 Output Total 725 450 50 Balance 3245.000 3455.470 1170 General: Alert, No acute distress, Other (disorientated, baseline, poor short term memory) HEENT: Atraumatic, PERRLA, Mucous membr. moist/pink Neck: Supple, No JVD Lymphatic: no adenopathy Neuro: Disoriented, CN 2-12 Grossly Intact Cardiovascular: Regular rate, Normal S1, Normal S2, Other (systolic faint murmur) Respiratory: Chest non-tender, No respiratory distress, Breath sounds nml Abdomen: Normal bowel sounds, Soft, Other (increased abdominal girth, baseline) Genitourinary: No Bleeding, No Discharge Extremities: No clubbing, No cyanosis, Other (pedal edema to BLEs, left greater than right, dependent edema) Skin: No rashes, No breakdown Comments/Notes: Left hip surgical dressing is intact without significant drainage. - Results Results: Laboratory Results WBC 8.7 x10^3/uL (4.8-10.8) 11/03/19 05:35 RBC 2.38 10^6/uL (4.20-5.40) L 11/03/19 05:35 Hgb 7.1 g/dL (12.0-16.0) L 11/03/19 05:35 Hct 22.7 % (37.0-47.0) L 11/03/19 05:35 MCV 95.4 fL (81.0-99.0) 11/03/19 05:35 MCH 29.8 pg (27.0-31.0) 11/03/19 05:35 MCHC 31.3 g/dL (32.0-36.0) L 11/03/19 05:35 RDW 15.9 % (12.0-15.0) H 11/03/19 05:35 Plt Count 141 10^3/uL (130-450) 11/03/19 05:35 MPV 11.6 fL (7.9-10.8) H 11/03/19 05:35 Reticulocyte % (Auto) 1.57 % (0.5-2.3) 11/01/19 04:45 Neut # (Auto) 5.3 10^3/uL (1.5-6.6) 11/03/19 05:35 Lymph # (Auto) 2.4 10^3/uL (1.5-3.5) 11/03/19 05:35 [place] # (Auto) 0.8 10^3/uL (0.0-1.0) 11/03/19 05:35 Eos # (Auto) 0.2 10^3/uL (0.0-0.7) 11/03/19 05:35 Baso # (Auto) 0.0 10^3/uL (0.0-0.1) 11/03/19 05:35 Absolute Nucleated RBC 0.00 x10^3/uL 11/03/19 05:35 Nucleated RBC % 0.0 /100WBC 11/03/19 05:35 Absolute Retic 0.048 10^6/uL (0.020-0.110) 11/01/19 04:45 Sodium 138 mmol/L (135-145) 11/03/19 05:35 Potassium 4.1 mmol/L (3.5-5.0) 11/03/19 05:35 Chloride 108 mmol/L (101-111) 11/03/19 05:35 Carbon Dioxide 26 mmol/L (21-32) 11/03/19 05:35 Anion Gap 4.0 (6-13) L 11/03/19 05:35 BUN 17 mg/dL (6-20) 11/03/19 05:35 Creatinine 0.8 mg/dL (0.4-1.0) 11/03/19 05:35 Estimated GFR (MDRD) 69 (>89) L 11/03/19 05:35 Glucose 117 mg/dL (70-100) H 11/03/19 05:35 Calcium 8.0 mg/dL (8.5-10.3) L 11/03/19 05:35 Magnesium 2.0 mg/dL (1.7-2.8) 11/02/19 05:30 Iron 24 ug/dL (28-170) L 11/01/19 04:45 TIBC 239 ug/dL (250-450) L 11/01/19 04:45 % Saturation 10 % (20-50) L 11/01/19 04:45 Transferrin 171 mg/dL (192-382) L 11/01/19 04:45 Ferritin 119.6 ng/mL (11.0-306.8) 11/01/19 04:45 Total Bilirubin 0.5 mg/dL (0.2-1.0) 11/02/19 05:30 AST 43 IU/L (10-42) H 11/02/19 05:30 ALT 18 IU/L (10-60) 11/02/19 05:30 Alkaline Phosphatase 40 IU/L (42-121) L 11/02/19 05:30 Lactate Dehydrogenase 128 IU/L (91-225) 11/01/19 04:45 Total Protein 4.9 g/dL (6.7-8.2) L 11/02/19 05:30 Albumin 2.5 g/dL (3.2-5.5) L 11/02/19 05:30 Globulin 2.4 g/dL (2.1-4.2) 11/02/19 05:30 Albumin/Globulin Ratio 1.0 (1.0-2.2) 11/02/19 05:30 Vitamin B12 161 pg/mL (180-914) L 11/01/19 04:45 TSH 3.26 uIU/mL (0.34-5.60) 11/02/19 05:30 Urine Color YELLOW 10/31/19 05:18 Urine Clarity CLEAR (CLEAR) 10/31/19 05:18 Urine pH 5.5 PH (5.0-7.5) 10/31/19 05:18 Ur Specific [place] 1.010 (1.002-1.030) 10/31/19 05:18 Urine Protein NEGATIVE mg/dL (NEGATIVE) 10/31/19 05:18 Urine Glucose (UA) NEGATIVE mg/dL (NEGATIVE) 10/31/19 05:18 Urine Ketones NEGATIVE mg/dL (NEGATIVE) 10/31/19 05:18 Urine Occult Blood NEGATIVE (NEGATIVE) 10/31/19 05:18 Urine Nitrite NEGATIVE (NEGATIVE) 10/31/19 05:18 Urine Bilirubin NEGATIVE (NEGATIVE) 10/31/19 05:18 Urine Urobilinogen 0.2 (NORMAL) E.U./dL (NORMAL) 10/31/19 05:18 Ur Leukocyte Esterase NEGATIVE (NEGATIVE) 10/31/19 05:18 Ur Microscopic Review NOT INDICATED 10/31/19 05:18 Urine Culture Comments NOT INDICATED 10/31/19 05:18 Sepsis Event Note (H) - Evaluation Current Stage of Sepsis: Ruled out ABX Reporting Has patient been on IV antibiotics over the past 48 hours?: No
[2019-11-03] MEDS ORDERED: LACTULOSE 10 GM /15 ML UDC PO ONE (14:46)
[2019-11-03] MEDS: LIDOCAINE PATCH 5% TOP PRN (20:35)
[2019-11-04] MEDS: SODIUM CHLORIDE FLUSH 0.9% 10 ML SYRINGE IVP SCH ×2 (02:07→09:33)
[2019-11-04] MEDS: ACETAMINOPHEN 325 MG TABLET PO PRN ×3 (05:43→16:35)
[2019-11-04] MEDS: oxyCODONE 5 MG TABLET PO PRN ×3 (06:25→16:35)
[2019-11-04] MEDS: LEVOTHYROXINE 25 MCG TABLET PO SCH (06:25)
[2019-11-04] MEDS: CHOLECALCIFEROL 1,000 UNIT TABLET PO SCH (09:31)
[2019-11-04] MEDS: polyethylene glycoL 3350 17 GM PACKET PO SCH (09:31)
[2019-11-04] MEDS: ASPIRIN 325 MG TABLET PO SCH ×2 (09:32→16:35)
[2019-11-04] MEDS: FERROUS SULFATE 325 MG TABLET PO SCH (09:32)
[2019-11-04] MEDS: LOSARTAN 50 MG TABLET PO SCH (09:32)
[2019-11-04] MEDS: DOCUSATE SODIUM 250 MG CAPSULE PO SCH (09:32)
[2019-11-04] MEDS: CALCIUM CARBONATE CHEW 500 MG TABLET PO SCH ×2 (09:33→21:50)
[2019-11-04] MEDS: SENNA 8.6 MG TABLET PO SCH (09:38)
--- NOTE | 2019-11-04 16:40 | PROVIDER PROGRESS NOTE ---
Subjective - Prog Note Date Prog Note Date: 11/04/19 Prog Note Time: 16:40 - Subjective Pt reports feeling: Improved Subjective: Daunta has no complaints and is participating in PT with less uncontrolled pain. 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 Her daughter is at the bedside for much of her stay. Bed alarm is in place for impulsive behaviors. Awaiting accepting SNF for rehab. Current Medications - Current Medications Current Medications: Active Medications Acetaminophen (Tylenol) 650 - 975 mg PO Q4HR PRN PRN Reason: PAIN Last Admin: 11/04/19 16:35 Dose: 650 mg Aspirin (Breann) 325 mg PO BIDWM [facility] Last Admin: 11/04/19 16:35 Dose: 325 mg Calcium Carbonate/Glycine (Tums) 500 mg PO BID [facility] Last Admin: 11/04/19 09:33 Dose: 500 mg Cholecalciferol (Vitamin D3) 2,000 unit PO DAILY [facility] Last Admin: 11/04/19 09:31 Dose: 2,000 unit Docusate Sodium (Colace 250mg Capsule) 250 - 500 mg PO DAILY [facility] Last Admin: 11/04/19 09:32 Dose: 250 mg Ferrous Sulfate (Feosol) 325 mg PO DAILYWM [facility] Last Admin: 11/04/19 09:32 Dose: 325 mg Ketorolac Tromethamine (Toradol Inj (15mg)) 15 mg IVP Q6HR PRN PRN Reason: PAIN Stop: 11/07/19 08:20 Last Admin: 11/03/19 09:46 Dose: 15 mg Levothyroxine Sodium (Synthroid) 50 mcg PO QDAC [facility] Last Admin: 11/04/19 06:25 Dose: 50 mcg Lidocaine (Lidoderm Patch) 1 patch TOP DAILY PRN PRN Reason: PAIN Last Admin: 11/03/19 20:35 Dose: 1 patch Losartan Potassium (Cozaar) 50 mg PO DAILY [facility] Last Admin: 11/04/19 09:32 Dose: 50 mg Oxycodone HCl (Roxicodone) 5 mg PO Q4HR PRN PRN Reason: Pain 5 to 7 Last Admin: 11/04/19 16:35 Dose: 5 mg Polyethylene Glycol (Miralax) 17 gm PO DAILY [facility] Last Admin: 11/04/19 09:31 Dose: 17 gm Senna (Senokot) 8.6 - 17.2 mg PO DAILY [facility] Last Admin: 11/04/19 09:38 Dose: Not Given Levothyroxine [Synthroid] 50 mcg PO QDAC 10/31/19 Losartan [Cozaar] 50 mg PO DAILY 10/31/19 Objective - Vital Signs/Intake & Output Reviewed Vital Signs: Yes Vital Signs: Vital Signs x48h Temp Pulse Resp BP Pulse Ox 11/04/19 15:50 36.8 C 89 16 111/52 L 97 11/04/19 12:48 36.4 C L 97 15 103/56 L 96 Intake & Output: Intake & Output 11/01/19 11/02/19 11/03/19 11/04/19 23:59 23:59 23:59 23:59 Intake Total 3970.000 3905.470 1990 640 Output Total 725 045 005 0446 Balance 3245.000 3455.470 1390 -410 - Objective General Appearance: positive: No acute distress, Alert, Other (confused, baseline dementia) Eyes Bilateral: positive: PERRL, No lid inflammation Eyes: OU Conjunctivae pale ENT: positive: Pharynx nml, Dry mucous membranes Neck: positive: Thyroid nml, No JVD Respiratory: positive: Chest non-tender, No respiratory distress, Breath sounds nml, Other (diminished bilaterally) Cardiovascular: positive: Regular rate & rhythm, No gallop, Systolic murmur Peripheral Pulses: 1+ Radial (R), 1+ Radial (L) Abdomen: positive: Non-tender, Nml bowel sounds Back: positive: Nml inspection Skin: positive: Color nml, No rash, Warm, Dry Extremities: positive: Pedal edema, Joint swelling (left hip) Neurologic/Psychiatric: positive: Disoriented to place, Disoriented to time, Slurred/abnml speech, Depressed mood/affect, Other (baseline profound short term memory loss) Reflexes: Bicep (R): 2+, Bicep (L): 2+ - Lab Results Fish Bones: 11/03/19 05:35 11/03/19 05:35 ABX Reporting Has patient been on IV antibiotics over the past 48 hours?: No Assessment/Plan - Problem List (1) Intertrochanteric fracture of left femur Impression: -Sustained a mechanical fall on stairs in the early a.m. hours 10/31/2019 -Thought to be all mechanical given the situation of new surroundings, poor lighting and no other syncope episodes -Post op day #4 after a left hip ORIF repair with Dr. Graf -Progressing with PT after given pain medications -Stood up today, but on second attempt unsuccessful -Using a sling lift by nursing for transfer from the bed to the chair -Continue PT, nursing cares, treat pain (2) Uncontrolled pain: - Status post left hip surgical repair - Hip is not bothersome unless moving and/or during therapy - Chronic low back pain for the past several years as a contributing factor - PO oxycodone, Tylenol prior to moving and PRN - No recent charted BMs, continues on BM meds - Continue to monitor for improvement (3) Constipation: - Now on oxycodone, no more IV access - No prior home narcotics - No BMs charted for the past several days ~ 10/30, now with good results - Worsening low back pain, may be worsened by sluggish bowels - Improved low back pain after lactulose late last PM - Continue to monitor, add additional agents if needed (4) Hypothyroidism: - Normal TSH on 11/02 at 3.26 - Takes home levothyroxine 50 mcg, continued here (5) Hypertension: - B/Ps normotensive at 129/53, heart rates 70-90s - Nothing significant on telemetry, now discontinued - Takes Cozzar 50 mg at home, continued here - Continue to monitor vital signs (6) Iron deficiency anemia: - Slow drift downtrend since surgical repair of hip - Recent iron studies show iron deficient - H/H 7.1/22.7, no acute s/s of acute bleeding on exam - Started on iron supplement on 11/01 - Routine labs (7) oliguria: -Resolving, since moving bowels and standing up - Urinalysis upon admission appears normal, no infection, no WBC count - Bilateral kidney US was performed on 11/02, showing no cause of low urine output - BUN/Creatinine are normal at 17/0.8, GFR 69 - Status post IVFs, mclaughlin out - Continue routine labs, encourage PO fluids (8) Physical debility: - Per PT notes, patient is recommended to be discharged to a SNF - Contributing factor of chronic obesity, now post op day #4 - Continue frequent nursing cares, await SNF placement
[2019-11-05] MEDS: LEVOTHYROXINE 25 MCG TABLET PO SCH (06:28)
[2019-11-05 06:31] LABS: BASOPHILS % (AUTO) 0.4 %; EOSINOPHILS # (AUTO) 0.4 10^3/uL (0.0-0.7); EOSINOPHILS % (AUTO) 5.1 %; HGB - HEMOGLOBIN 7.5 g/dL (12.0-16.0); LYMPHOCYTES # (AUTO) 2.2 10^3/uL (1.5-3.5); MEAN CORPUSCULAR HEMOGLOBIN 28.8 pg (27.0-31.0); MEAN CORPUSCULAR VOLUME 93.1 fL (81.0-99.0); MEAN PLATELET VOLUME 10.4 fL (7.9-10.8); MONOCYTES # (AUTO) 0.6 10^3/uL (0.0-1.0); MONOCYTES % (AUTO) 7.8 %; NEUTROPHILS # (AUTO) 4.3 10^3/uL (1.5-6.6); NEUTROPHILS % (AUTO) 57.2 %; PLT - PLATELET COUNT 199 10^3/uL (130-450); WHITE BLOOD COUNT 7.5 x10^3/uL (4.8-10.8)
[2019-11-05 06:44] LABS: CALCIUM 8.5 mg/dL (8.5-10.3); CREATININE 0.7 mg/dL (0.4-1.0)
[2019-11-05] MEDS: polyethylene glycoL 3350 17 GM PACKET PO SCH (08:30)
[2019-11-05] MEDS: ASPIRIN 325 MG TABLET PO SCH ×2 (08:31→18:28)
[2019-11-05] MEDS: CHOLECALCIFEROL 1,000 UNIT TABLET PO SCH (08:31)
[2019-11-05] MEDS: SENNA 8.6 MG TABLET PO SCH (08:31)
[2019-11-05] MEDS: oxyCODONE 5 MG TABLET PO PRN ×2 (08:31→14:41)
[2019-11-05] MEDS: LOSARTAN 50 MG TABLET PO SCH (08:31)
[2019-11-05] MEDS: CALCIUM CARBONATE CHEW 500 MG TABLET PO SCH ×2 (08:31→22:29)
[2019-11-05] MEDS: ACETAMINOPHEN 325 MG TABLET PO PRN ×2 (08:32→14:41)
[2019-11-05] MEDS: FERROUS SULFATE 325 MG TABLET PO SCH (08:32)
[2019-11-05] MEDS: DOCUSATE SODIUM 250 MG CAPSULE PO SCH (08:32)
--- NOTE | 2019-11-05 12:01 | PROVIDER PROGRESS NOTE ---
Assessment/Plan - Problem List (1) Comminuted fracture of left hip Qualifiers: Encounter type: subsequent encounter Assessment/Plan: 11/05 PT/OT will continue evaluation and treatment for pt, transfer pt and progress for gait. continue followup orthopedics surgeon continue PT/OT evaluation and treatment continue Pain control SW report pt is accepted by a [place] SNF, [facility], and plan d/c pt on tomorrow. 11/02 day two from s/p left hip fracture repair. pt is alert and more oriented today, plus two, person and place but not time. pt report she felt better today. she denies chest pain, fever or chill, shortness of breath. continue followup orthopedics surgeon continue PT/OT evaluation and treatment continue Pain control consulted with SW for d/c planing 11/01 day one from s/p left hip fracture repair continue DVT prophylaxis per surgeon order incentive spirometer PT/OT evaluation and treatment continue Pain control consulted with SW for d/c planing (2) Hypothyroidism Assessment/Plan: 11/05 stable, continue home levothyroxine 11/02 normal TSH, continue home levothyroxine check TSH, and Continue with her p.o. thyroid replacement (3) Hypertension Assessment/Plan: stable, Resume Cozzar, home meds (4) anemia 11/05, pt's HGB is 7.5, hemodynamic stable. nurse report pt did not have GI bleed. Occult stool test is pending. pt was found to have iron deficiency anemia continue iron pill, and lab monitor 11/02, HGB is 7.1 today, some hemodilation after IVF of NS for her oliguria. pt is hemodynamic stable, asymptomatic for anemia. pt denies GI bleed continue H&H monitor pt continue iron pill, pt has slight iron deficiency check occult stool pt also present poor appetite. For this problem, consulted with mat roller. pt's HGB is 8.8, significantly drip from 12 at the admission, it is likely from acute blood loss from surgery. clinically pt is hemodynamic stable. anemia study reveals slight iron deficiency, replacement of iron H&H to monitor (5) oliguria 11/05 improved and better. pt has 1250ml urine yesterday, today she had 350ml now. continue hydration, and I&O monitor pt, continue lab monitor 11/02 nurse report pt had oliguria at 275 ml the previous day. Yesterday pt had 725 ml, normal urine color, no darkness. Today pt already have 450 ml, so it is resolved. US of retroperitonel is unremarkable. continue gently IVF to keep pt hydration encourage pt drink and eat diet as appropriate enough D/C P[place]y, continue closely monitor Urine out-pt - Current Meds Current Meds: Current Medications Generic Name Dose Route Start Last Admin Trade Name Freq PRN Reason Stop Dose Admin Acetaminophen 650 - 975 mg 10/31/19 17:35 11/05/19 08:32 Tylenol PO 650 mg Q4HR PRN Administration PAIN Aspirin 325 mg 11/01/19 08:00 11/05/19 08:31 Breann PO 325 mg BIDWM MYRA Administration Calcium Carbonate/Glycine 500 mg 11/02/19 21:00 11/05/19 08:31 Tums PO 500 mg BID MYRA Administration Cholecalciferol 2,000 unit 11/02/19 12:00 11/05/19 08:31 Vitamin D3 PO 2,000 unit DAILY MYRA Administration Docusate Sodium 250 - 500 mg 11/02/19 09:00 11/05/19 08:32 Colace 250mg Capsule PO 250 mg DAILY MYRA Administration Ferrous Sulfate 325 mg 11/01/19 10:00 11/05/19 08:32 Feosol PO 325 mg DAILYWM MYRA Administration Ketorolac Tromethamine 15 mg 11/02/19 08:21 11/03/19 09:46 Toradol Inj (15mg) IVP 11/07/19 08:20 15 mg Q6HR PRN Administration PAIN Levothyroxine Sodium 50 mcg 11/02/19 07:00 11/05/19 06:28 Synthroid PO 50 mcg QDAC MYRA Administration Lidocaine 1 patch 11/02/19 14:35 11/03/19 20:35 Lidoderm Patch TOP 1 patch DAILY PRN Administration PAIN Losartan Potassium 50 mg 11/01/19 09:00 11/05/19 08:31 Cozaar PO 50 mg DAILY MYRA Administration Oxycodone HCl 5 mg 10/31/19 04:42 11/05/19 08:31 Roxicodone PO 5 mg Q4HR PRN Administration Pain 5 to 7 Polyethylene Glycol 17 gm 11/01/19 09:00 11/05/19 08:30 Miralax PO 17 gm DAILY MYRA Administration Senna 8.6 - 17.2 mg 11/02/19 09:00 11/05/19 08:31 Senokot PO 8.6 mg DAILY MYRA Administration - Lab Result Fish Bone Diagrams: 11/05/19 06:23 11/05/19 06:23 - Additional Planning My Orders: My Active Orders 11/07/19 05:00 BMP - BASIC METABOLIC PANEL [CHEM] DAILYLAB CBC - COMP BLD CT W/AUTO DIFF [HEME] DAILYLAB 11/08/19 05:00 BMP - BASIC METABOLIC PANEL [CHEM] DAILYLAB CBC - COMP BLD CT W/AUTO DIFF [HEME] DAILYLAB 11/06/19 05:00 BMP - BASIC METABOLIC PANEL [CHEM] DAILYLAB CBC - COMP BLD CT W/AUTO DIFF [HEME] DAILYLAB Subjective - Subjective Patient Reports: Feeling Better Objective Vital Signs: Vital Signs - 24 hr 11/04/19 11/04/19 11/04/19 12:48 15:50 19:35 Temperature 36.4 C L 36.8 C 36.5 C Heart Rate [ 97 89 75 Brachial] Respiratory 15 16 16 Rate Blood Pressure 103/56 L 111/52 L 151/54 H [Right Brachial artery] O2 Saturation 96 97 99 11/04/19 11/05/19 23:56 07:41 Temperature 36.8 C 36.9 C Heart Rate [ 74 73 Brachial] Respiratory 18 16 Rate Blood Pressure 143/68 H 118/64 [Right Brachial artery] O2 Saturation 99 96 Oxygen O2 Source Room air I&O (Last 24 Hrs): Intake and Output Totals x24h 11/03/19 11/04/19 11/05/19 23:59 23:59 23:59 Intake Total 1990 1000 120 Output Total 600 1250 350 Balance 1390 -250 -230 General: Alert, No acute distress HEENT: Atraumatic, PERRLA, EOMI Neck: Supple Lymphatic: no adenopathy Neuro: Alert, Non Focal Cardiovascular: Regular rate, Normal S1, Normal S2 Respiratory: Chest non-tender, No respiratory distress, Breath sounds nml Abdomen: Normal bowel sounds, Soft Extremities: Normal pulses - Results Results: Laboratory Results WBC 7.5 x10^3/uL (4.8-10.8) 11/05/19 06:23 RBC 2.60 10^6/uL (4.20-5.40) L 11/05/19 06:23 Hgb 7.5 g/dL (12.0-16.0) L 11/05/19 06:23 Hct 24.2 % (37.0-47.0) L 11/05/19 06:23 MCV 93.1 fL (81.0-99.0) 11/05/19 06:23 MCH 28.8 pg (27.0-31.0) 11/05/19 06:23 MCHC 31.0 g/dL (32.0-36.0) L 11/05/19 06:23 RDW 16.0 % (12.0-15.0) H 11/05/19 06:23 Plt Count 199 10^3/uL (130-450) 11/05/19 06:23 MPV 10.4 fL (7.9-10.8) 11/05/19 06:23 Reticulocyte % (Auto) 1.57 % (0.5-2.3) 11/01/19 04:45 Neut # (Auto) 4.3 10^3/uL (1.5-6.6) 11/05/19 06:23 Lymph # (Auto) 2.2 10^3/uL (1.5-3.5) 11/05/19 06:23 [place] # (Auto) 0.6 10^3/uL (0.0-1.0) 11/05/19 06:23 Eos # (Auto) 0.4 10^3/uL (0.0-0.7) 11/05/19 06:23 Baso # (Auto) 0.0 10^3/uL (0.0-0.1) 11/05/19 06:23 Absolute Nucleated RBC 0.00 x10^3/uL 11/05/19 06:23 Nucleated RBC % 0.0 /100WBC 11/05/19 06:23 Absolute Retic 0.048 10^6/uL (0.020-0.110) 11/01/19 04:45 Sodium 139 mmol/L (135-145) 11/05/19 06:23 Potassium 4.2 mmol/L (3.5-5.0) 11/05/19 06:23 Chloride 107 mmol/L (101-111) 11/05/19 06:23 Carbon Dioxide 28 mmol/L (21-32) 11/05/19 06:23 Anion Gap 4.0 (6-13) L 11/05/19 06:23 BUN 13 mg/dL (6-20) 11/05/19 06:23 Creatinine 0.7 mg/dL (0.4-1.0) 11/05/19 06:23 Estimated GFR (MDRD) 81 (>89) L 11/05/19 06:23 Glucose 110 mg/dL (70-100) H 11/05/19 06:23 Calcium 8.5 mg/dL (8.5-10.3) 11/05/19 06:23 Magnesium 2.0 mg/dL (1.7-2.8) 11/02/19 05:30 Iron 24 ug/dL (28-170) L 11/01/19 04:45 TIBC 239 ug/dL (250-450) L 11/01/19 04:45 % Saturation 10 % (20-50) L 11/01/19 04:45 Transferrin 171 mg/dL (192-382) L 11/01/19 04:45 Ferritin 119.6 ng/mL (11.0-306.8) 11/01/19 04:45 Total Bilirubin 0.5 mg/dL (0.2-1.0) 11/02/19 05:30 AST 43 IU/L (10-42) H 11/02/19 05:30 ALT 18 IU/L (10-60) 11/02/19 05:30 Alkaline Phosphatase 40 IU/L (42-121) L 11/02/19 05:30 Lactate Dehydrogenase 128 IU/L (91-225) 11/01/19 04:45 Total Protein 4.9 g/dL (6.7-8.2) L 11/02/19 05:30 Albumin 2.5 g/dL (3.2-5.5) L 11/02/19 05:30 Globulin 2.4 g/dL (2.1-4.2) 11/02/19 05:30 Albumin/Globulin Ratio 1.0 (1.0-2.2) 11/02/19 05:30 Vitamin B12 161 pg/mL (180-914) L 11/01/19 04:45 TSH 3.26 uIU/mL (0.34-5.60) 11/02/19 05:30 Urine Color YELLOW 10/31/19 05:18 Urine Clarity CLEAR (CLEAR) 10/31/19 05:18 Urine pH 5.5 PH (5.0-7.5) 10/31/19 05:18 Ur Specific [place] 1.010 (1.002-1.030) 10/31/19 05:18 Urine Protein NEGATIVE mg/dL (NEGATIVE) 10/31/19 05:18 Urine Glucose (UA) NEGATIVE mg/dL (NEGATIVE) 10/31/19 05:18 Urine Ketones NEGATIVE mg/dL (NEGATIVE) 10/31/19 05:18 Urine Occult Blood NEGATIVE (NEGATIVE) 10/31/19 05:18 Urine Nitrite NEGATIVE (NEGATIVE) 10/31/19 05:18 Urine Bilirubin NEGATIVE (NEGATIVE) 10/31/19 05:18 Urine Urobilinogen 0.2 (NORMAL) E.U./dL (NORMAL) 10/31/19 05:18 Ur Leukocyte Esterase NEGATIVE (NEGATIVE) 10/31/19 05:18 Ur Microscopic Review NOT INDICATED 10/31/19 05:18 Urine Culture Comments NOT INDICATED 10/31/19 05:18 Sepsis Event Note (H) - Evaluation Current Stage of Sepsis: Ruled out ABX Reporting Has patient been on IV antibiotics over the past 48 hours?: No Current Medications - Current Medications Current Medications: Active Medications Acetaminophen (Tylenol) 650 - 975 mg PO Q4HR PRN PRN Reason: PAIN Last Admin: 11/05/19 08:32 Dose: 650 mg Aspirin (Breann) 325 mg PO BIDWM PENDING SALE TO [facility] Last Admin: 11/05/19 08:31 Dose: 325 mg Calcium Carbonate/Glycine (Tums) 500 mg PO BID PENDING SALE TO [facility] Last Admin: 11/05/19 08:31 Dose: 500 mg Cholecalciferol (Vitamin D3) 2,000 unit PO DAILY PENDING SALE TO [facility] Last Admin: 11/05/19 08:31 Dose: 2,000 unit Docusate Sodium (Colace 250mg Capsule) 250 - 500 mg PO DAILY PENDING SALE TO [facility] Last Admin: 11/05/19 08:32 Dose: 250 mg Ferrous Sulfate (Feosol) 325 mg PO DAILYWM PENDING SALE TO [facility] Last Admin: 11/05/19 08:32 Dose: 325 mg Ketorolac Tromethamine (Toradol Inj (15mg)) 15 mg IVP Q6HR PRN PRN Reason: PAIN Stop: 11/07/19 08:20 Last Admin: 11/03/19 09:46 Dose: 15 mg Levothyroxine Sodium (Synthroid) 50 mcg PO QDAC PENDING SALE TO [facility] Last Admin: 11/05/19 06:28 Dose: 50 mcg Lidocaine (Lidoderm Patch) 1 patch TOP DAILY PRN PRN Reason: PAIN Last Admin: 11/03/19 20:35 Dose: 1 patch Losartan Potassium (Cozaar) 50 mg PO DAILY PENDING SALE TO [facility] Last Admin: 11/05/19 08:31 Dose: 50 mg Oxycodone HCl (Roxicodone) 5 mg PO Q4HR PRN PRN Reason: Pain 5 to 7 Last Admin: 11/05/19 08:31 Dose: 5 mg Polyethylene Glycol (Miralax) 17 gm PO DAILY PENDING SALE TO [facility] Last Admin: 11/05/19 08:30 Dose: 17 gm Senna (Senokot) 8.6 - 17.2 mg PO DAILY PENDING SALE TO [facility] Last Admin: 11/05/19 08:31 Dose: 8.6 mg Levothyroxine [Synthroid] 50 mcg PO QDAC 10/31/19 Losartan [Cozaar] 50 mg PO DAILY 10/31/19
[2019-11-05] MEDS: LIDOCAINE PATCH 5% TOP PRN (18:39)
[2019-11-06] MEDS: LEVOTHYROXINE 25 MCG TABLET PO SCH (06:13)
--- NOTE | 2019-11-06 07:35 | DISCHARGE SUMMARY ---
"Discharge Summary Admit Date: 10/31/19 Discharge Date: 11/06/19 Discharging Provider: Marin Brambila Primary Care Provider: new provider at [place] Condition at Discharge: Stable Discharge Disposition: SNF DC/Xfer Discharge Facility Name: [facility], [place] - DIAGNOSES Admission Diagnoses: (1) Femur fracture, left (2) Hypothyroidism (3) Hypertension Discharge Diagnoses with Status of Each Condition: (1) Comminuted fracture of left hip stable, s/p left hip repair. D/C to SNF for continuing training. pt is prescribed aspirin for DVT prophylaxis, pain meds, vitamin D, calcium and fosamax. followup orthopedics in two weeks or as needed (2) Hypothyroidism stable (3) Hypertension stable (4) iron deficiency anemia stable. pt is prescribed iron pill pt refused to have lab test in the morning 11/06/19 (5) oliguria resolved. US of retroperitoneal is unremarkable. kidney function is normal - HPI History of Present Illness: refer from Dr. Topete's HPI on 10/31/19 Patient is an 79 y/o female who presented to the ED after a ground level fall [facility]. She is visiting family who just moved to [facility]. She woke up to use the bathroom [facility] and not being familiar with the lay out of the house, she missed a step and fell. Her daughter witnessed the fall. She did not hit her head or black out. Work up in the ED included an xray which showed a comminuted left proximal femoral fracture with an intertrochanteric component and a displaced/ angulated fracture of the femoral diaphesis. Orthopedic (Dr Graf) was contacted by the ED and is agreeable to see the patient. She require morphine and fentanyl for adequate pain control. At bedside she appears comfortable and denies any pain currently. She denies chest pain, abd pain, n/v/d, fever or chills. She is otherwise health with a medical history of hypothyroidism, hypertension and slight memory loss only. - CONSULTS | PROCEDURES Consultations: Dr. Graf Procedures: left hip repair - HOSPITAL COURSE Hospital Course: pt was admitted for fall, then pt was found to have left femur fracture. pt had left femur repaired by orthopedics. pt continue to have pain control and PT/OT evaluation and treatment. pt also developed acute anemia, which was likely from surgery. iron study reveals iron deficiency anemia. pt was prescribed iron. In the initially days pt developed oliguria. after continue hydration, encourage pt increase oral intake, pt's oliguria was resolved. The detail hospital course is as the below. (1) Comminuted fracture of left hip stable, s/p left hip repair. D/C to SNF for continuing training. pt is prescribed aspirin for DVT prophylaxis, pain meds, vitamin D, calcium and fosamax. followup orthopedics in two weeks or as needed (2) Hypothyroidism stable (3) Hypertension stable (4) iron deficiency anemia stable. pt is prescribed iron pill pt refused to have lab test in the morning 11/06/19 (5) oliguria resolved. US of retroperitoneal is unremarkable. kidney function is normal - ALLERGIES Allergies/Adverse Reactions: Allergies Allergy/AdvReac Type Severity Reaction Status Date / Time No Known Drug Allergies Allergy Verified 10/31/19 03:00 - MEDICATIONS Home Medications: Ambulatory Orders Medication Instructions Recorded Confirmed Levothyroxine [Synthroid] 50 mcg PO QDAC 10/31/19 10/31/19 Losartan [Cozaar] 50 mg PO DAILY 10/31/19 10/31/19 Alendronate [Fosamax] 70 mg PO Q7D #1 tablet 11/06/19 Aspirin [Breann] 325 mg PO BIDWM #20 tablet 11/06/19 Calcium Carbonate [Tums (Calcium 500 mg PO BID #10 tablet 11/06/19 Carbonate 500mg)] Cholecalciferol (Vitamin D3) 1,000 unit PO DAILY #10 capsule 11/06/19 [Vitamin D3] Ferrous Sulfate 325 mg PO DAILY #10 tablet 11/06/19 oxyCODONE [Roxicodone] 5 mg PO Q4HR PRN #20 tablet 11/06/19 - PHYSICAL EXAM AT DISCHARGE General Appearance: positive: No acute distress, Alert. negative: Lethargic Eyes Bilateral: positive: Normal inspection, PERRL, EOMI, No lid inflammation ENT: positive: ENT inspection nml, Pharynx nml, No signs of dehydration. negative: Purulent nasal drainage Neck: positive: Nml inspection, Thyroid nml, No JVD, Trachea midline. negative: Thyromegaly, Lymphadenopathy (R), Lymphadenopathy (L), Stiff neck, Tracheal deviation Respiratory: positive: Chest non-tender, No respiratory distress, Breath sounds nml. negative: Wheezes, Rales, Rhonchi Cardiovascular: positive: Regular rate & rhythm, No murmur, No gallop. negative: Irregularly irregular, Extrasystoles, Tachycardia, Bradycardia, JVD present, Systolic murmur, Diastolic murmur Peripheral Pulses: positive: 2+ Abdomen: positive: Non-tender, No organomegaly, Nml bowel sounds, No distention. negative: Tenderness, Guarding, Rebound Back: positive: Nml inspection. negative: CVA tenderness (R), CVA tenderness (L) Skin: positive: Color nml, No rash, Warm, Dry. negative: Cyanosis, Diaphoresis, Pallor Extremities: positive: Non-tender. negative: Calf tenderness, Navneet's sign/cords Neurologic/Psychiatric: positive: Sensation nml. negative: Weakness, Sensory loss, Facial droop, Slurred/abnml speech, Depressed mood/affect - LABS Result Diagrams: 11/05/19 06:23 11/05/19 06:23 - SEPSIS Current Stage of Sepsis: Ruled out - FOLLOW UP Follow Up: 1,continue PT/OT, followup orthopedics in 10-14 days or sooner as needed. 2, followup your PCP in one week to monitor your H&H. 3, Aspirin as dvt prophylaxis for hip injury 4, dress change as orthopedics's instruction and nurse instruction - TIME SPENT Time Spent in Discharge (Minutes): 45"
--- NOTE | 2019-11-06 07:37 | Discharge Plan ---
"Discharge Plan for SNF / [facility] - Discharge Plan And Transition Orders Problem Reviewed?: Yes Disposition: 03 SNF DC/Xfer Condition: Stable Allergies and Adverse Reactions: Allergies Allergy/AdvReac Type Severity Reaction Status Date / Time No Known Drug Allergies Allergy Verified 10/31/19 03:00 Health Concerns: s/p with left hip repair, anemia Plan of Treatment: continue PT/OT, followup orthopedics in 10-14 days or sooner as needed followup your PCP in one week to monitor your H&H Care Goals: stabilization of your medical conditions and healing of your hip injury Assessment: discussed with you and your daughter for the care plan, you understood the care plan - SNF / [facility] Transition Orders Admit to (Facility): [facility], [place] Under the care of (Name): health Provider of [facility] Discharge Diagnosis: comminuted fracture of left hip, hypothyroidism, HTN, iron deficiency anemia, oliguria Medicare Certification Statement: I certify that [facility] care is medically necessary on a continuing basis for any of the conditions for which she/he is receiving care during hospitalization. Notify PCP of admission and forward orders to primary provider for signature. Weight on admission and: Daily Call PCP immediately if weight increases by: 2 kg Other Notification Orders: Call PCP immediately if patient develops dyspnea, chest pain/tightness or edema. House Bowel Program: Yes Additional Bowel Program Orders: If no BM after 2 days, nurse may give M.O.M. 30ml PO PRN and/or ducolax Supp 1 CO and/or GIFTY 250mg P.O., and/or senna 1-2 tabs PO. On day 3 nurse may give repeat above order until residents constipation is resolved. Annual Influenza Vaccine (between Jul 08 and February 04): Yes Two-step PPD per [facility] [phone] or approved exception documents: Yes Treatments & Other Orders: 1,continue PT/OT, followup orthopedics in 10-14 days or sooner as needed. 2, followup your PCP in one week to monitor your H&H. 3, Aspirin as dvt prophylaxis for hip injury Medication Orders: PLEASE REFER TO THE DISCHARGE MEDICATION LIST. Insulin Orders?: No - Medications New Prescriptions: oxyCODONE [Roxicodone] 5 mg PO Q4HR PRN #20 tablet PRN Reason: Pain 5 to 7 Alendronate [Fosamax] 70 mg PO Q7D #1 tablet Aspirin [Breann] 325 mg PO BIDWM #20 tablet Calcium Carbonate [Tums (Calcium Carbonate 500mg)] 500 mg PO BID #10 tablet Cholecalciferol (Vitamin D3) [Vitamin D3] 1,000 unit PO DAILY #10 capsule Ferrous Sulfate 325 mg PO DAILY #10 tablet - Diet Type: Geriatric Texture: Regular Liquids: Thin May have monthly special meal: Yes - Therapies | Activity Therapy: Evaluation | Treat if indicated: PT, OT Rehabilitation Potential: Maximize functional status Activity: Activity as Tolerated Additional Instructions: pt may followup health Provider of [facility] when she is arrival"
[2019-11-06] MEDS: oxyCODONE 5 MG TABLET PO PRN (08:00)
[2019-11-06] MEDS: LOSARTAN 50 MG TABLET PO SCH (08:00)
[2019-11-06] MEDS: DOCUSATE SODIUM 250 MG CAPSULE PO SCH (08:00)
[2019-11-06] MEDS: ACETAMINOPHEN 325 MG TABLET PO PRN (08:00)
[2019-11-06] MEDS: polyethylene glycoL 3350 17 GM PACKET PO SCH (08:00)
[2019-11-06] MEDS: CALCIUM CARBONATE CHEW 500 MG TABLET PO SCH (08:00)
[2019-11-06] MEDS: FERROUS SULFATE 325 MG TABLET PO SCH (08:00)
[2019-11-06] MEDS: CHOLECALCIFEROL 1,000 UNIT TABLET PO SCH (08:01)
[2019-11-06] MEDS: ASPIRIN 325 MG TABLET PO SCH (08:01)
[2019-11-06] MEDS: SENNA 8.6 MG TABLET PO SCH (08:01)
[2019-11-06 08:17] VITALS: BP 125/59
== END 2019-11-06 09:45 | DRG 481 ==
LOC: EDBD → ED 02:53 → MS2 04:42
PROVIDERS: ADMIT Internal Medicine; ATTEND Nurse Practitioner Gerontology
PROC: 0QS706Z Reposition Left Upper Femur with Intramedullary Internal Fixation Device, Open Approach (ICD-10-PCS; principal; 2019-10-31 13:00)
DX: S72.352A Displaced comminuted fracture of shaft of left femur, initial encounter for closed fracture (principal); W01.0XXA Fall on same level from slipping, tripping and stumbling without subsequent striking against object, initial encounter; Y93.01 Activity, walking, marching and hiking; Y92.019 Unspecified place in single-family (private) house as the place of occurrence of the external cause; S72.142A Displaced intertrochanteric fracture of left femur, initial encounter for closed fracture; D62 Acute posthemorrhagic anemia; S72.22XA Displaced subtrochanteric fracture of left femur, initial encounter for closed fracture; R34 Anuria and oliguria; I10 Essential (primary) hypertension; E03.9 Hypothyroidism, unspecified; D50.9 Iron deficiency anemia, unspecified; F06.8 Other specified mental disorders due to known physiological condition; E66.9 Obesity, unspecified; Z68.39 Body mass index [BMI] 39.0-39.9, adult; G89.29 Other chronic pain; M54.5 Low back pain; R32 Unspecified urinary incontinence; R35.0 Frequency of micturition; H26.9 Unspecified cataract; Z96.5 Presence of tooth-root and mandibular implants
CPT/HCPCS: 36415; 73502; 76770; 80048; 80053; 81003; 82607; 82728; 83540; 83615; 83735; 84443; 84466; 85014; 85018; 85025; 85045; 93005; 96361; 96374; 96376; 97110; 97162; 97166; 97530; 99285; A9270; J0131; J1170; J7120; 81001; 82272; 87086

== ENCOUNTER 2022-05-14 11:04 | Outpatient (CLI) | payer MEDICARE | END 2022-05-14 11:05 | disposition critical access hospital (66) | LOC: EMS 11:04 | DX: R53.1 Weakness (principal); R41.0 Disorientation, unspecified; R53.83 Other fatigue | CPT/HCPCS: A0425; A0429 ==

== ENCOUNTER 2022-05-14 11:27 | Emergency (ER) | payer MEDICARE ==
[2022-05-14 11:56] LABS: BASOPHILS % (AUTO) 0.2 %; EOSINOPHILS % (AUTO) 0.2 %; HGB - HEMOGLOBIN 10.5 g/dL (12.0-16.0); LYMPHOCYTES # (AUTO) 3.3 10^3/uL (1.5-3.5); LYMPHOCYTES % (AUTO) 27.2 %; MEAN CORPUSCULAR HEMOGLOBIN 30.1 pg (27.0-31.0); MEAN CORPUSCULAR HGB CONC 32.8 g/dL (32.0-36.0); MEAN CORPUSCULAR VOLUME 91.7 fL (81.0-99.0); MEAN PLATELET VOLUME 11.1 fL (7.9-10.8); MONOCYTES # (AUTO) 1.2 10^3/uL (0.0-1.0); MONOCYTES % (AUTO) 9.5 %; NEUTROPHILS # (AUTO) 7.5 10^3/uL (1.5-6.6); NEUTROPHILS % (AUTO) 62.2 %; PLT - PLATELET COUNT 186 10^3/uL (130-450); RED BLOOD COUNT 3.49 10^6/uL (4.20-5.40); RED CELL DISTRIBUTION WIDTH 17.2 % (12.0-15.0); WHITE BLOOD COUNT 12.2 x10^3/uL (4.8-10.8)
[2022-05-14 12:07] LABS: ALBUMIN 2.7 g/dL (3.2-5.5); ALBUMIN/GLOBULIN RATIO 0.6 (1.0-2.2); BILIRUBIN,TOTAL 0.7 mg/dL (0.2-1.0); CALCIUM 10.9 mg/dL (8.5-10.3); CREATININE 1.4 mg/dL (0.4-1.0); POTASSIUM 3.6 mmol/L (3.5-5.0); TOTAL PROTEIN 7.6 g/dL (6.7-8.2)
[2022-05-14 14:24] LABS: BILIRUBIN,URINE NEGATIVE (NEGATIVE); GLUCOSE, URINE (UA) NEGATIVE (NEGATIVE); KETONES,URINE (UA) NEGATIVE (NEGATIVE); LEUKOCYTE ESTERASE, URINE NEGATIVE (NEGATIVE); NITRITE,URINE POSITIVE (NEGATIVE); OCCULT BLOOD,URINE MODERATE (NEGATIVE); PH,URINE 5.5 PH (5.0-7.5); PROTEIN,URINE 100 mg/dL (NEGATIVE); UROBILINOGEN,URINE 0.2 (NORMAL) E.U./dL (NORMAL)
[2022-05-14 14:27] LABS: CLARITY,URINE HAZY (CLEAR)
[2022-05-14 14:41] LABS: AMORPHOUS SEDIMENT,UR Marked /LPF; BACTERIA,URINE Many /HPF (None Seen); MUCUS,URINE Moderate Strands; SQUAMOUS EPITHELIAL CELL,UR MANY Squamous (<= Few)
[2022-05-14 14:42] LABS: CRYSTALS,URINE 6-10 Calcium Oxalate /LPF
[2022-05-14] MEDS ORDERED: SULFAMETH/TRIMETH DS 800/160 MG TABLET PO STA (14:53)
--- NOTE | 2022-05-14 14:54 | ED Physician Documentation ---
History of Present Illness - Stated complaint Stated Complaint: FEMALE - Chief complaint Chief Complaint: General - History obtained from History obtained from: Family, EMS - Additonal information Additional information: The patient is brought to the emergency department by EMS at daughter's request for chief complaint of altered mental status and strong smelling urine. Daughter states that she has been away for the last 2-1/2 weeks but normally, patient though is severely demented is able to ambulate and get in the car, etc. However, when daughter went to visit her, she was just sitting in the wheelchair with her head slumped to the side. Daughter states that the care facility could not tell her how long patient had been like that. They did not report any fevers or vomiting. Patient has not wanted to eat as much as usual and has been refusing showers. However, she will take her medications still. Daughter states this is happened before and patient has a UTI and she is concerned for this possibility. No trauma. The daughter does mention the patient has had somewhat of a congested cough for the last few weeks. She does not seem to be short of breath, however. Review of Systems Unable to obtain: Dementia PD PAST MEDICAL HISTORY - Past Medical History Cardiovascular: Hypertension Respiratory: None Neuro: Dementia Endocrine/Autoimmune: HyPOthyroidism GI: None : Incontinence, Frequency Psych: None Musculoskeletal: None Derm: None - Past Surgical History Past Surgical History: No HEENT: Cataracts (left eye), Other (tooth implant) - Present Medications Home Medications: Ambulatory Orders Medication Instructions Recorded Confirmed Levothyroxine [Synthroid] 50 mcg PO QDAC 10/31/19 10/31/19 Losartan [Cozaar] 50 mg PO DAILY 10/31/19 10/31/19 Alendronate [Fosamax] 70 mg PO Q7D #1 tablet 11/06/19 Aspirin [Breann] 325 mg PO BIDWM #20 tablet 11/06/19 Calcium Carbonate [Tums (Calcium 500 mg PO BID #10 tablet 11/06/19 Carbonate 500mg)] Cholecalciferol (Vitamin D3) 1,000 unit PO DAILY #10 capsule 11/06/19 [Vitamin D3] Ferrous Sulfate 325 mg PO DAILY #10 tablet 11/06/19 oxyCODONE [Roxicodone] 5 mg PO Q4HR PRN #20 tablet 11/06/19 Sulfamethox/Trimeth 800/160 1 each PO BID #14 tablet 05/14/22 [Bactrim Ds 800/160] - Allergies Allergies/Adverse Reactions: Allergies Allergy/AdvReac Type Severity Reaction Status Date / Time No Known Drug Allergies Allergy Verified 10/31/19 03:00 - Social History Does the pt smoke?: No Smoking Status: Never smoker - POLST Patient has POLST: No POLST Status: Full Code PD ED PE NORMAL - Vitals Vital signs reviewed: Yes - General General: No acute distress, Well developed/nourished, Other (The patient is alert) - HEENT HEENT: Atraumatic, PERRL, EOMI, Moist mucous membranes - Neck Neck: Supple, no meningeal sign - Cardiac Cardiac: RRR, No murmur, Strong equal pulses - Respiratory Respiratory: No respiratory distress, Clear bilaterally - Abdomen Abdomen: Soft, Non tender, Non distended - Derm Derm: Normal color, Warm and dry, Other (Early stage II presacral pressure ulcer ) - Extremities Extremities: No deformity, Other (Trace pitting edema.) - Neuro Neuro: Other (Alert, oriented to self. Grossly intact neurologic exam otherwise.) - Psych Psych: Other (Patient is calm, though she screams if she is moved. ) Results - Vitals Vitals: Vital Signs - 24 hr 05/14/22 05/14/22 11:30 16:17 Temperature 36.3 C L Heart Rate 56 L 86 Respiratory 16 17 Rate Blood Pressure 131/60 H 135/85 H O2 Saturation 99 94 Oxygen O2 Source Room air - Labs Labs: Laboratory Tests 05/14/22 05/14/22 05/14/22 11:46 11:46 14:10 WBC 12.2 H RBC 3.49 L Hgb 10.5 L Hct 32.0 L MCV 91.7 MCH 30.1 MCHC 32.8 RDW 17.2 H Plt Count 186 MPV 11.1 H Neut # (Auto) 7.5 H Lymph # (Auto) 3.3 [place] # (Auto) 1.2 H Eos # (Auto) 0.0 Baso # (Auto) 0.0 Absolute Nucleated RBC 0.00 Nucleated RBC % 0.0 Sodium 134 L Potassium 3.6 Chloride 95 L Carbon Dioxide 27 Anion Gap 12.0 BUN 27 H Creatinine 1.4 H Estimated GFR (MDRD) 36 L Glucose 159 H Calcium 10.9 H Total Bilirubin 0.7 AST 47 H ALT 26 Alkaline Phosphatase 57 Total Protein 7.6 Albumin 2.7 L Globulin 4.9 H Albumin/Globulin Ratio 0.6 L Lipase 30 Urine Color DARK YELLOW Urine Clarity HAZY Urine pH 5.5 Ur Specific [place] >=1.030 H Urine Protein 100 H Urine Glucose (UA) NEGATIVE Urine Ketones NEGATIVE Urine Occult Blood MODERATE H Urine Nitrite POSITIVE H Urine Bilirubin NEGATIVE Urine Urobilinogen 0.2 (NORMAL) Ur Leukocyte Esterase NEGATIVE Urine RBC 6-10 H Urine WBC 11-25 H Ur Squamous Epith Cells MANY Squamous H Urine Crystals 6-10 Calcium Oxalate Amorphous Sediment Marked Urine Bacteria Many H Urine Casts 3-5 Cellular Casts Urine Mucus Moderate Strands Ur Microscopic Review INDICATED Urine Culture Comments NOT INDICATED PD MEDICAL DECISION MAKING - ED course Complexity details: reviewed old records, reviewed results, re-evaluated patient, considered differential, d/w family ED course: Patient was worked up with labs, x-ray, and urinalysis. Urinalysis was positive for infection and patient was started on antibiotics. Chest x-ray is negative and labs were otherwise unremarkable. Patient stable for discharge back to her facility. Daughter will drive her. Departure - Departure Disposition: Home, Self Care Clinical Impression: UTI (urinary tract infection) Qualifiers: Urinary tract infection type: acute cystitis Hematuria presence: without hematuria Qualified Code(s): N30.00 - Acute cystitis without hematuria Cough Qualifiers: Cough type: unspecified Qualified Code(s): R05.9 - Cough, unspecified Condition: Stable Instructions: ED UTI Cystitis Female Prescriptions: Sulfamethox/Trimeth 800/160 [Bactrim Ds 800/160] 1 each PO BID #14 tablet Comments: Ms. Best's Urinalysis is positive for infection. Her chest x-ray is completely clear. She has been started on antibiotics for her infection today. At this point in time, there is no evidence of a bacterial cause of the cough, and this could be from postnasal drip or a viral illness. If she continues to have a cough after completing antibiotic treatment for her urinary tract infection, please have her follow-up with her primary care physician. Her prescription for antibiotics has been electronically transmitted to [facility] in [place], the pharmacy of choice on record. Discharge Date/Time: 05/14/22 16:18
--- NOTE | 2022-05-14 15:33 | XRAY Report ---
PROCEDURE: Chest 1 View X-Ray INDICATIONS: chest pain TECHNIQUE: One view of the chest was acquired. COMPARISON: None FINDINGS: Surgical changes and devices: None. Lungs and pleura: No pleural effusions or pneumothorax. Streaky opacities in the left lung base like ly represent atelectasis. Mediastinum: Mediastinal contours appear normal. Heart is mildly enlarged Bones and chest wall: No suspicious bony lesions. Overlying soft tissues appear unremarkable. IMPRESSION: No acute cardiopulmonary disease process. Reviewed by: Tamara Hurst MD, PhD on 05/14/2022 3:31 PM PDT Approved by: Tamara Hurst MD, PhD on 05/14/2022 3:31 PM PDT Station ID: [id number]
[2022-05-14 16:18] VITALS: BP 135/85
== END 2022-05-14 16:18 | disposition home or self-care (01) ==
LOC: EDUNIT# → ED 11:27
DX: N30.00 Acute cystitis without hematuria (principal); R50.9 Fever, unspecified
CPT/HCPCS: 36415; 71045; 80053; 81001; 83690; 85025; 99282; 99284; A9270; 81003; 87086

== ENCOUNTER 2022-05-15 10:57 | Outpatient (CLI) | payer MEDICARE | END 2022-05-15 10:58 | disposition critical access hospital (66) | LOC: EMS 10:57 | DX: R53.1 Weakness (principal); R46.89 Other symptoms and signs involving appearance and behavior | CPT/HCPCS: A0425; A0429 ==

== ENCOUNTER 2022-05-15 11:15 | Emergency (ER) | payer MEDICARE ==
[2022-05-15] MEDS ORDERED: SODIUM CHLORIDE 0.9% 1,000 ML IV STA (11:25)
[2022-05-15 11:43] LABS: BASOPHILS # (AUTO) 0.1 10^3/uL (0.0-0.1); BASOPHILS % (AUTO) 0.5 %; EOSINOPHILS # (AUTO) 0.1 10^3/uL (0.0-0.7); EOSINOPHILS % (AUTO) 0.8 %; HCT - HEMATOCRIT 31.3 % (37.0-47.0); HGB - HEMOGLOBIN 10.3 g/dL (12.0-16.0); LYMPHOCYTES % (AUTO) 38.2 %; MEAN CORPUSCULAR HEMOGLOBIN 29.9 pg (27.0-31.0); MEAN CORPUSCULAR HGB CONC 32.9 g/dL (32.0-36.0); MONOCYTES # (AUTO) 1.5 10^3/uL (0.0-1.0); MONOCYTES % (AUTO) 11.2 %; NEUTROPHILS # (AUTO) 6.3 10^3/uL (1.5-6.6); NEUTROPHILS % (AUTO) 48.6 %; PLT - PLATELET COUNT 183 10^3/uL (130-450); RED BLOOD COUNT 3.44 10^6/uL (4.20-5.40); RED CELL DISTRIBUTION WIDTH 17.2 % (12.0-15.0)
[2022-05-15 11:53] LABS: ALBUMIN 2.7 g/dL (3.2-5.5); ALBUMIN/GLOBULIN RATIO 0.5 (1.0-2.2); BILIRUBIN,TOTAL 0.6 mg/dL (0.2-1.0); CALCIUM 10.8 mg/dL (8.5-10.3); CREATININE 1.5 mg/dL (0.4-1.0); POTASSIUM 3.5 mmol/L (3.5-5.0); TOTAL PROTEIN 7.7 g/dL (6.7-8.2)
[2022-05-15] MEDS ORDERED: cefTRIAXone 1 GM VIAL IVP STA (11:53)
--- NOTE | 2022-05-15 12:09 | ED Physician Documentation ---
History of Present Illness - Stated complaint Stated Complaint: LETHARGIC - Chief complaint Chief Complaint: General - History obtained from History obtained from: Patient, Family, EMS - History of Present Illness Timing: Today Pain level max: 0 Pain level now: 0 - Additonal information Additional information: Patient is an 82-year-old female brought in by EMS today for weakness. Her daughter accompanies her. She was seen here yesterday and diagnosed with a UTI. She was started on Bactrim. She continues to feel weak today. The patient lives at [facility] in assisted living. No fevers. No chills. No vomiting. No diarrhea or constipation. No falls. No headache. Decreased oral intake recently. Daughter states that she mainly drinks coffee, orange juice and eats ice cream. Review of Systems Ten Systems: 10 systems reviewed and negative Constitutional: denies: Fever, Chills Nose: denies: Rhinorrhea / runny nose, Congestion Throat: denies: Sore throat Cardiac: denies: Chest pain / pressure, Palpitations Respiratory: denies: Cough GI: denies: Abdominal Pain, Vomiting, Diarrhea Skin: denies: Rash Musculoskeletal: denies: Neck pain, Back pain Neurologic: reports: Generalized weakness. denies: Headache PD PAST MEDICAL HISTORY - Past Medical History Past Medical History: Yes Cardiovascular: Hypertension Respiratory: None Neuro: Dementia Endocrine/Autoimmune: HyPOthyroidism GI: None : Incontinence, Frequency Psych: None Musculoskeletal: None Derm: None - Past Surgical History Past Surgical History: No HEENT: Cataracts (left eye), Other (tooth implant) - Present Medications Home Medications: Ambulatory Orders Medication Instructions Recorded Confirmed Levothyroxine [Synthroid] 50 mcg PO QDAC 10/31/19 10/31/19 Losartan [Cozaar] 50 mg PO DAILY 10/31/19 10/31/19 Alendronate [Fosamax] 70 mg PO Q7D #1 tablet 11/06/19 Aspirin [Breann] 325 mg PO BIDWM #20 tablet 11/06/19 Calcium Carbonate [Tums (Calcium 500 mg PO BID #10 tablet 11/06/19 Carbonate 500mg)] Cholecalciferol (Vitamin D3) 1,000 unit PO DAILY #10 capsule 11/06/19 [Vitamin D3] Ferrous Sulfate 325 mg PO DAILY #10 tablet 11/06/19 oxyCODONE [Roxicodone] 5 mg PO Q4HR PRN #20 tablet 11/06/19 Sulfamethox/Trimeth 800/160 1 each PO BID #14 tablet 05/14/22 [Bactrim Ds 800/160] cephALEXin [Keflex] 500 mg PO Q6H #20 cap 05/15/22 - Allergies Allergies/Adverse Reactions: Allergies Allergy/AdvReac Type Severity Reaction Status Date / Time No Known Drug Allergies Allergy Verified 10/31/19 03:00 - Social History Does the pt smoke?: No Smoking Status: Never smoker - POLST Patient has POLST: No POLST Status: Full Code PD ED PE NORMAL - Vitals Vital signs reviewed: Yes - General General: No acute distress, Other (Alert, oriented to person and place only) - HEENT HEENT: PERRL, Other (Dry lips and tongue) - Neck Neck: Supple, no meningeal sign - Cardiac Cardiac: RRR, Strong equal pulses - Respiratory Respiratory: No respiratory distress, Clear bilaterally - Abdomen Abdomen: Soft, Non tender, Non distended - Back Back: No CVA TTP, No spinal TTP - Derm Derm: Warm and dry - Extremities Extremities: No edema, No calf tenderness / cord - Neuro Neuro: Other (Alert, oriented to person and place only) - Psych Psych: Normal mood, Normal affect Results - Vitals Vitals: Vital Signs - 24 hr 05/15/22 11:32 Temperature 36.6 C Heart Rate 96 Respiratory 18 Rate Blood Pressure 131/63 H O2 Saturation 96 Oxygen O2 Source Room air - Labs Labs: Laboratory Tests 05/15/22 05/15/22 11:34 11:34 WBC 13.0 H RBC 3.44 L Hgb 10.3 L Hct 31.3 L MCV 91.0 MCH 29.9 MCHC 32.9 RDW 17.2 H Plt Count 183 MPV 11.0 H Neut # (Auto) 6.3 Lymph # (Auto) 5.0 H [place] # (Auto) 1.5 H Eos # (Auto) 0.1 Baso # (Auto) 0.1 Absolute Nucleated RBC 0.00 Nucleated RBC % 0.0 Sodium 137 Potassium 3.5 Chloride 98 L Carbon Dioxide 29 Anion Gap 10.0 BUN 28 H Creatinine 1.5 H Estimated GFR (MDRD) 33 L Glucose 98 Calcium 10.8 H Total Bilirubin 0.6 AST 45 H ALT 26 Alkaline Phosphatase 62 Total Protein 7.7 Albumin 2.7 L Globulin 5.0 H Albumin/Globulin Ratio 0.5 L Lipase 30 PD MEDICAL DECISION MAKING - ED course Complexity details: reviewed results, re-evaluated patient, considered differential, d/w patient, d/w family ED course: Patient is well-appearing, nontoxic. Afebrile. Given IV fluids and IV Rocephin . She feels better, is stronger and more awake. We will allow her to go back to [facility] at this time. Her daughter is comfortable taking her home. No indication for admission. No indication of sepsis. Family counseled regarding signs and symptoms for which I believe and urgent re-evaluation would be necessary. Family with good understanding of and agreement to plan and is comfortable going home at this time This document was made in part using voice recognition software. While efforts are made to proofread this document, sound alike and grammatical errors may occur. Departure - Departure Disposition: Home, Self Care Clinical Impression: Generalized weakness, Dehydration UTI (urinary tract infection) Qualifiers: Urinary tract infection type: acute cystitis Hematuria presence: without hematuria Qualified Code(s): N30.00 - Acute cystitis without hematuria Condition: Good Instructions: ED Dehydration, ED UTI Cystitis Female Follow-Up: Your,doctor in 1 week [Other] Prescriptions: cephALEXin [Keflex] 500 mg PO Q6H #20 cap Comments: We will change her antibiotic from Bactrim to Keflex. A urine culture was performed as well, if this is positive we will call you. At the prescription was sent to [facility] in [place]. You were given a dose of Rocephin today, this is an IV antibiotic that will last for 24 hours. You are also given IV fluids for dehydration.
[2022-05-15 14:28] VITALS: BP 125/60
== END 2022-05-15 14:27 | disposition home or self-care (01) ==
LOC: EDUNIT# → ED 11:15
DX: E86.0 Dehydration (principal); R53.1 Weakness; N30.00 Acute cystitis without hematuria; E03.9 Hypothyroidism, unspecified; R32 Unspecified urinary incontinence; R35.0 Frequency of micturition
CPT/HCPCS: 36415; 80053; 83690; 85025; 96361; 96374; 99283

== ENCOUNTER 2022-05-28 16:54 | Outpatient (CLI) | payer MEDICARE | END 2022-05-28 16:55 | disposition critical access hospital (66) | LOC: EMS 16:54 | DX: R53.1 Weakness (principal) | CPT/HCPCS: A0425; A0429 ==

== ENCOUNTER 2022-06-01 10:30 | Outpatient (CLI) | payer MEDICARE | END 2022-06-01 10:31 | disposition hospice, home (50) | LOC: EMS 10:30 | PROVIDERS: ATTEND Specialist | DX: Z51.5 Encounter for palliative care (principal); I21.9 Acute myocardial infarction, unspecified; I26.99 Other pulmonary embolism without acute cor pulmonale | CPT/HCPCS: A0425; A0428 ==